=== PATIENT | male | born 1940 | race Caucasian/White ===

== ENCOUNTER 2016-05-20 10:56 | Inpatient (IN) | payer MEDICARE, OTHER ==
--- NOTE | ~2016-05-20 | CN ---
Consultation Report [address] [place]. [address] NAME: LILIYA MCMAHON : 40 STATUS : ADM IN PAT#: [id number] AGE: 75 ADM/REG DATE : 05/20/16 MR#: [id number] REPORT SERV DATE: 05/20/16 DICTATED BY: SUDARSHAN ONEIL DATE: 05/20/16 REPORT STATUS : Draft TRANSCRIBED BY: MODL DATE: 05/20/16 CONSULTATION DATE OF CONSULTATION: 05/20/2016 REASON FOR CONSULTATION: Ventilator management. HISTORY OF PRESENT ILLNESS: The patient is a 75-year-old white gentleman with a past medical history of CVA and hypertension, who initially presented to [facility] with complaints of shortness of breath and at that time, was found to have a large neck mass. He was intubated there for respiratory failure. The patient then underwent a head and neck dissection by Dr. Barnett, which has since come back positive for adenocarcinoma. Dr. Barnett was unable to get a complete resection and so the patient is transferred over here for further robotic surgery. We are consulted for assistance in ventilator management while the patient is here. PAST MEDICAL HISTORY: 1. Hypertension. 2. History of CVA. 3. History of undisclosed previous cancer. HOME MEDICATIONS: See medication reconciliation form. ALLERGIES: NO KNOWN DRUG ALLERGIES. SOCIAL HISTORY: Unable to obtain secondary to sedation and intubation. FAMILY HISTORY: Unable to obtain secondary to sedation and intubation. REVIEW OF SYSTEMS: Unable to obtain secondary to sedation and intubation. PHYSICAL EXAMINATION: VITAL SIGNS: Temperature 98.5, heart rate 61, respiratory rate 18, blood pressure 195/85. GENERAL: Sedated and intubated. HEENT: ET tube in place. NECK: Supple and nontender. No lymphadenopathy. No thyromegaly. No jugular venous distention. LUNGS: Coarse breath sounds bilaterally. CARDIOVASCULAR: Regular rate and rhythm. No murmurs, rubs, or gallops. ABDOMEN: Soft, nontender, nondistended. Positive bowel sounds. No hepatosplenomegaly. EXTREMITIES: No cyanosis, clubbing, or edema. NEURO: Sedated. PSYCH: Unable to assess. Consultation Report [address] [place]. [address] NAME: LILIYA MCMAHON : 40 STATUS : ADM IN PAT#: [id number] AGE: 75 ADM/REG DATE : 05/20/16 MR#: [id number] REPORT SERV DATE: 05/20/16 DICTATED BY: SUDARSHAN ONEIL DATE: 05/20/16 REPORT STATUS : Draft TRANSCRIBED BY: KALEN DATE: 05/20/16 LABORATORY DATA: Labs are pending at the time of dictation. IMAGING: A chest x-ray shows very tiny, small bilateral effusions and some scant right-sided infiltrates. ASSESSMENT AND PLAN: The patient is a 75-year-old gentleman with a past medical history of hypertension and cerebrovascular accident, who presents with a new diagnosis of head and neck adenocarcinoma, status post partial resection by Dr. Barnett, now planned for further robotic dissection on Sunday. We are consulted for assistance in ventilator management. Currently, the patient is hemodynamically stable on the ventilator. We will get a followup ABG and wean his ventilator as tolerated. We will provide daily awakening trials to assess his mental status while he is on the ventilator. We will also provide sedation with propofol and/or Precedex and fentanyl as needed. Currently, the patient is hypertensive, we will start him on a Cardene drip and wean for a systolic blood pressure less than 180, as well as restart his home antihypertensives once we find out what those are. We will continue to follow along the patient with you, please call with questions, appreciate the consult. REGAN/KALEN Sudarshan Oneil MD / [id number] CC: Tylor Barnett M.D.
--- NOTE | ~2016-05-20 | HP ---
History And Physical [facility] [address] [place]. 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 HISTORY OF PRESENT ILLNESS: The patient is a 75-year-old male who was transferred initially at [facility] for treatment of shortness of breath, who was noted to have a tumor of the pharynx. This was subsequently confirmed to be a squamous-cell carcinoma. Late last week, Dr. Tylor Barnett of Otolaryngology took the patient to the operating room at [place] for direct laryngoscopy to biopsy his primary tumor, as well as neck dissection. This was on 05/12/2016. During laryngoscopy, the patient was felt to best benefit from an attempted robotic supraglottic laryngectomy capabilities, which were not possible at [place] and the patient was subsequently transferred to [facility], where this history and physical is dictated. The patient presented on 05/08/2016 to [place] with shortness of breath, chest discomfort, and was emergently intubated at that time. PAST MEDICAL HISTORY: Does include history of stroke, hypertension, and atrial fibrillation. PAST SURGICAL HISTORY: Includes tumor removal, hernia repair, neck stents, as well as leg stents, for vascular disease. The patient does have a hil-[id number] day smoking history, quit approximately at the age of 74 years. He has no other history of alcohol or drug use. ALLERGIES: HE DOES HAVE SEVERAL ALLERGIES INCLUDING CODEINE, LATEX, SULFA, TOBRAMYCIN, AND AMOXICILLIN. THIS IS ALL PER THE MEDICAL RECORDS, NOT FROM THE PATIENT'S FAMILY. PHYSICAL EXAMINATION: GENERAL: He is awake, he is intubated and sedated orally. He is afebrile, but he is hypertensive currently. HEENT: On examining the ears, the pinna are normal with no gross lesions. Nares currently are patent. Oral cavity shows oral endotracheal tube at this time and the neck shows healing neck dissection incisions. There was no sign or symptom of gross hematoma. At this time, JPs have little in the way of output. 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 PLAN: The patient is in need of surgical repair. This was planned with Dr. Barnett on Sunday. Dr. Castorena [facility] business administration program chair is aware that he has actually already seen the patient before I did and has written orders for his further ICU care. The patient will continue on the ventilator at this point and we will await surgical intervention on Sunday. RAQUEL/KALEN Sudarshan Nieves History And Physical [address] [address] NAME: LILIYA MCMAHON : 40 STATUS : ADM IN [facility]#: [id number] AGE: 75 ADM/REG DATE : 05/20/16 MR#: [id number] REPORT SERV DATE: 05/20/16 DICTATED BY: SUDARSHAN DUTTA. DATE: 05/20/16 REPORT STATUS : Draft TRANSCRIBED BY: KALEN DATE: 05/20/16 Patricia Dutta / [id number] CC: Tylor Barnett M.D.
--- NOTE | ~2016-05-20 | IDS ---
Interim Discharge Summary [facility] [address] [place]. [address] NAME: LILIYA MCMAHON : 40 STATUS : ADM IN [facility]#: [id number] AGE: 75 ADM/REG DATE : 05/20/16 MR#: [id number] REPORT SERV DATE: 06/16/16 DICTATED BY: JULIETA LE DATE: 06/16/16 REPORT STATUS : Draft TRANSCRIBED BY: MODL DATE: 06/16/16 ADMISSION DATE: 05/20/2016 DISCHARGE DATE: Please see history and physical by Dr. Wilson on 05/20/2016 for full details. In brief, this is a T2 N0 squamous cell carcinoma of the supraglottic larynx. The patient underwent surgical repair and went through a transoral supraglottic laryngectomy with a da Kelsey robotic platform by Dr. Barnett on 05/22/2016. HOSPITAL COURSE: 1. Laryngeal cancer, status post surgical repair and operation on 05/22/2016. I believe he had previous surgery prior to that at the outside hospital. Please see final discharge summary by primary team for the ENT record regarding this laryngeal cancer. From our perspective, the patient is on tracheostomy, he is on continuous mechanical ventilation, tolerates pressure support ventilation for around two to three hours, his peak airway pressure is around 20, and the patient is in need of a long-term acute facility. 2. Anemia: Of note, the patient is currently anemic. Continue to watch in the outpatient setting. 3. Dysphagia: The patient is status post PEG tube, on 06/15/2016, we had some bleeding, GI is involved. Percutaneous gastrotomy tube was inserted on 05/30/2016. 4. Agitation: This has been an ongoing problem for the patient, we have him off Precedex, we have been using Seroquel to treat his agitation. The patient's QTc on 06/15/2016, was 468. 5. Peripheral vascular disease: The patient is currently on aspirin and Plavix. 6. Pseudomonas: The patient is on ciprofloxacin and shall continue ciprofloxacin until 06/18/2016. 7. Sepsis: On 06/15/2016, it was noted that the patient had a new fever, mild leukocytosis, unclear whether the patient had an aspiration. We conducted a bronchoscopy. Pathology shows gram-negative bacilli, 15,000 colony units. Many white blood cell counts. The patient's blood culture is also 1/2 positive for a Staph. Thought to be a egr-ussx-[id number] Staph. Antibiotic choice has been changed from Cipro alone to the addition of vancomycin and meropenem. The patient is transferred to an LTAC, has been put on hold due to this new infection. 8. Disposition: Once the patient's infection is treated and antibiotic coverage is further defined depending culture data, the patient will most likely be able to transferred to an LTAC facility. JAKE/KALEN Julieta Le MD / [id number] Interim Discharge Summary [address] [address] NAME: LILIYA MCMAHON : 40 STATUS : ADM IN [facility]#: [id number] AGE: 75 ADM/REG DATE : 05/20/16 MR#: [id number] REPORT SERV DATE: 06/16/16 DICTATED BY: JULIETA LE DATE: 06/16/16 REPORT STATUS : Draft TRANSCRIBED BY: KALEN DATE: 06/16/16 CC: Patricia Donovan
--- NOTE | ~2016-05-20 | OP ---
Record Of Operation [facility] [address] [place]. [address] NAME: LILIYA MCMAHON : 40 STATUS : ADM IN [facility]#: [id number] AGE: 75 ADM/REG DATE : 05/20/16 MR#: [id number] REPORT SERV DATE: 06/15/16 DICTATED BY: JULIETA SPENCER DATE: 06/15/16 REPORT STATUS : Draft TRANSCRIBED BY: MODL DATE: 06/15/16 DATE OF PROCEDURE: 06/15/2016 PROCEDURE: Bronchoscopy with bronchoalveolar lavage. PREOPERATIVE DIAGNOSIS: Right lower lobe pneumonia with respiratory failure. POSTOPERATIVE DIAGNOSIS: Right lower lobe pneumonia with respiratory failure. INDICATION FOR PROCEDURE: The patient has a new onset of fever, right lower lobe infiltrate, and white blood cell count, evaluated for bronchoscopy for culture data. PROCEDURE NOTE: The patient was on mechanical ventilation, we placed the bronchoscope through the tracheostomy. We instilled lidocaine down the trachea and the right lower lobe. We conducted a central airway examination, no significant mucous plugs were noted. We were able to conduct a bronchoalveolar lavage of the right lower lobe to send off for culture data. There was no hemoptysis or other abnormalities. Endobronchial mucosa was erythematous. OUTCOME: Successful bronchoscopy for bronchoalveolar lavage of the right lower lobe. HFQ/KALEN Julieta Spencer MD / [id number] CC: Patricia Donovan KENNETH
--- NOTE | ~2016-05-20 | CN ---
Consultation Report [facility] [address] [place]. [address] NAME: LILIYA MCMAHON : 40 STATUS : ADM IN [facility]#: [id number] AGE: 75 ADM/REG DATE : 05/20/16 MR#: [id number] REPORT SERV DATE: 05/29/16 DICTATED BY: RACHELLE FIGUEROA DATE: 05/29/16 REPORT STATUS : Draft TRANSCRIBED BY: MODL DATE: 05/29/16 GI CONSULTATION DATE OF CONSULTATION: REASON FOR CONSULTATION: Dysphagia and protein-calorie malnutrition. HISTORY OF PRESENT ILLNESS: Mr. Mcmahon is a 75-year-old, white male, with a history of T2 N0 squamous cell carcinoma of the supraglottic larynx, which he recently had a laryngectomy and tracheostomy placement for on 05/22/2016. GI is being consulted for percutaneous endoscopic gastrostomy tube placement for protein-calorie malnutrition and dysphagia. PAST MEDICAL HISTORY: Squamous cell carcinoma of the supraglottic larynx, past CVA, hypertension, atrial fibrillation, and peripheral vascular disease. PAST SURGICAL HISTORY: Hernia repair, tumor removal as above, neck and leg stents placed. SOCIAL HISTORY: Former smoker, quit tobacco one year ago at age 74. Previously smoked one pack per day. Denies any alcohol or drug use. Sol, telephone number is [phone]. MEDICATIONS: Reviewed. ALLERGIES: REVIEWED. FAMILY HISTORY: Noncontributory. PHYSICAL EXAMINATION: VITAL SIGNS: The patient is afebrile. His vital signs have been stable. GENERAL: The patient is awake and alert, unable to verbalize due to recent surgeries, but exhibits good understanding when being questioned. HEENT: Normocephalic. Has tracheostomy in place. NG tube is also in place. CARDIAC: S1, S2. CHEST: Clear. ABDOMEN: Soft. Nontender, nondistended. Bowel sounds normoactive. LABORATORY DATA: Show WBC 5.3, hemoglobin 8.4, hematocrit 25.2, platelets 329. INR 1.1. Sodium 136, potassium 3.7, chloride 99, bicarb 28, BUN 15, creatinine 0.45, glucose 142, albumin is 2. Liver enzymes normal. Prealbumin is 11.4. IMPRESSION AND PLAN: Protein-calorie malnutrition secondary to dysphagia as he is status post squamous cell carcinoma of supraglottic larynx with laryngectomy and tracheostomy. Would be okay to go ahead and schedule EGD with PEG tube placement with anesthesia, but would like to discuss with Dr. Barnett with regard to surgery and anatomy of his posterior oropharynx. I do not suspect that this would be a problem. However, would like to just Consultation Report [facility] [address] [place]. [address] NAME: LILIYA MCMAHON : 40 STATUS : ADM IN PAT#: [id number] AGE: 75 ADM/REG DATE : 05/20/16 MR#: [id number] REPORT SERV DATE: 05/29/16 DICTATED BY: RACHELLE FIGUEROA DATE: 05/29/16 REPORT STATUS : Draft TRANSCRIBED BY: MODLizbeth DATE: 05/29/16 discuss preemptively. I reviewed the indications, procedure, risks, benefits, and alternatives of EGD with PEG tube placement with the patient. I will also call his (telephone number above) and discuss the same with her and would answer any questions or concerns that either may have. We will continue to follow. NANCY/KALEN Rachelle Figueroa MD / [id number] CC: Tylor Barnett M.D. Herbert Alberto
--- NOTE | ~2016-05-20 | CN ---
Consultation Report [facility] [address] [place]. [address] NAME: LILIYA MCMAHON : 40 STATUS : ADM IN [facility]#: [id number] AGE: 75 ADM/REG DATE : 05/20/16 MR#: [id number] REPORT SERV DATE: 05/30/16 DICTATED BY: WHITLEY CARMICHAEL DATE: 05/30/16 REPORT STATUS : Draft TRANSCRIBED BY: MODL DATE: 05/30/16 DATE OF CONSULTATION: 05/30/2016 IDENTIFYING DATA: 1. PCP, Dr. Herbert Alberto in [place]. 2. Surgeon is Dr. Tylor Barnett. 3. GI is Dr. Yara Figueroa. 4. Cash Poster on admission was Dr. Raffaele Perkins. HISTORY OF PRESENT ILLNESS: This is a 75-year-old male, who [facility]ness of [facility], chest discomfort, and emergently intubated on 05/08/2016. He [facility] after noting to have a tumor of his pharynx for which he was evaluated by Dr. Tylor Barnett of Otolaryngology. He took the patient to the operating room. The tumor was noted to be a squamous cell carcinoma. During laryngoscopy, at that time, the patient was felt to best benefit from an attempted robotic supraglottic laryngectomy capabilities, which were not possible at [place], so the patient was subsequently transferred to [facility], where his H and P was dictated here. The patient has a history of laryngeal cancer, for which he had a squamous cell carcinoma of the supraglottic larynx, hypertension, CVA, atrial fib, and history of peripheral vascular disease. The hospitalist group are consulted for medical management. The patient is status post laryngectomy, had a tracheostomy placed on 05/22/2016 and presently had a PEG tube placement today on 05/30/2016. The patient's history was obtained through review of health management consultant notes and H and Ps on admit to [facility]. There is no previous history in [employer] of the patient. The patient is on the vent per tracheostomy tube with a Precedex drip in use and unable to discuss his history of present illness as well as his past history. PAST MEDICAL HISTORY: 1. Laryngeal cancer. 2. Hypertension. 3. CVA. 4. Atrial fibrillation. 5. Peripheral vascular disease. HOME MEDICATIONS: 1. Albuterol HFA puffer p.r.n. daily. 2. Norvasc 5 mg one tablet p.o. daily. 3. Aspirin 81 mg p.o. every morning. 4. Plavix 75 mg p.o. every morning. 5. Doxycycline 100 mg p.o. b.i.d. x10 days. 6. Hydrochlorothiazide 12.5 mg one capsule daily. 7. Xalatan 0.005% ophthalmic drops, dose unknown. 8. Remeron 30 mg tablets, dose unknown daily. 9. Potassium chloride 10 mEq tablet, unknown daily. 10.Pravachol 40 mg tablets daily. Consultation Report [address] [place]. [address] NAME: LILIYA MCMAHON : 40 STATUS : ADM IN [facility]#: [id number] AGE: 75 ADM/REG DATE : 05/20/16 MR#: [id number] REPORT SERV DATE: 05/30/16 DICTATED BY: WHITLEY CARMICHAEL DATE: 05/30/16 REPORT STATUS : Draft TRANSCRIBED BY: KALEN DATE: 05/30/16 11.Flomax 0.4 mg capsule p.o. daily. ALLERGIES: 1. CODEINE. 2. LATEX. 3. SULFA. 4. AMOXICILLIN. 5. TOBRAMYCIN. SOCIAL HISTORY: The patient is , previous smoker of one pack per day, quit approximately one year ago. No illicit drugs. No alcohol use. FAMILY HISTORY: Unable to obtain. The patient is sedated on the vent and has a trach, and no family is available. SURGICAL HISTORY: 1. Hernia repair. 2. Tumor removal, which was squamous cell carcinoma of the supraglottic larynx. 3. History of leg and neck stents. 4. PEG on 05/30/2016. 5. Tracheostomy placement, 05/22/2016. REVIEW OF SYSTEMS: Negative, other than what is included in HPI. The patient is unable to relate to nausea and vomiting. On vent, displays no shortness of breath. He is very calm on Precedex drip. Displays no agitation. No noted fever. PHYSICAL EXAMINATION: VITAL SIGNS: From today, blood pressure 123/70, respiratory rate 20, heart rate 87, temperature 98.9, and O2 saturation 96% on the vent at 40% FiO2. GENERAL: This is a 75-year-old male, resting in bed, in no acute distress. He is sleepy. He will be awaken without difficulty to speech and touch. He has a trach to the vent and is on a Precedex drip for sedation at present time. NEURO: His head is atraumatic, normocephalic. He is sleepy, sedation in use. NECK: Supple. Trachea is midline. No JVD noted. No obvious thyromegaly or lymphadenopathy. He does have a trach, midline to the vent. EENT: His sclerae are nonicteric. Pupils are equal and reactive to light. His nares are patent. Mucous membranes moist. Tongue is midline without deviation. He nods to yes when I asked to assess him. CHEST: No pain with palpation. LUNGS: He has coarse rhonchi bilaterally. Respiratory rate normal. No increased work of breathing at present time on the vent. CARDIOVASCULAR: S1 and S2 with no obvious murmurs, rubs, or gallops. He is on bedside telemetry monitoring with a sinus rhythm with a rate of 75 without ectopy. ABDOMEN: Soft, nontender. He has hypoactive bowel sounds. PEG tube is in place in the Consultation Report [address] [address] NAME: LILIYA MCMAHON : 40 STATUS : ADM IN [facility]#: [id number] AGE: 75 ADM/REG DATE : 05/20/16 MR#: [id number] REPORT SERV DATE: 05/30/16 DICTATED BY: WHITLEY CARMICHAEL DATE: 05/30/16 REPORT STATUS : Draft TRANSCRIBED BY: MODL DATE: 05/30/16 epigastrium with 4 x [address] EXTREMITIES: Normal distal pulses. No calf tenderness. No edema. He has SCDs in place for DVT prophylaxis. SKIN: Warm and dry. No unusual rashes or lesions. Poor turgor. Normal color. PSYCH: The patient is sedated when awakens. He is cooperative and attempts yes/no to questions I ask. LABORATORY DATA: Sodium 134, potassium 3.5, chloride 95, bicarbonate 24.3, BUN 15, creatinine 0.52, GFR 121, glucose 138, calcium 8.2, magnesium 2.1, phosphorus 3.2, white blood cell 5.4, hemoglobin 8.4, hematocrit 25.6, platelets 379. INR 1.1, CPK 76, CK-MB 1.7, troponin 0.03. On 05/30/2016, the patient had a portable chest x-ray that showed cardiac silhouette and pulmonary vasculature stable. On 05/29/2016, the patient had an EKG that noted a sinus rhythm with a rate at 75. ASSESSMENT AND PLAN: 1. The patient is status post laryngectomy for squamous cell cancer per ENT. He has respiratory failure. He is maintained on the vent with the settings of CMV, tidal volume 500, 40% FiO2, and 5 of PEEP. He is on a Precedex drip for sedation per left subclavian. We will continue his Proventil treatments q.4 hours as noted, maintained vent settings for tonight. Check ABG and a portable chest x-ray in the a.m. 2. Hypertension. Aware. At presently, the patient's blood pressure is controlled. We will continue his Norvasc and hydrochlorothiazide per tube. 3. Protein-calorie malnutrition. Aware. He has presently had a new PEG insertion today. 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 and he will be maintained on normal saline at 50 an hour tonight. 4. Anemia. Aware. He has had a stable H and H for the last two days of 8.4 and 25.6. We will check an a.m. CBC and continue to monitor. 5. The patient has a history of peripheral vascular disease and stents. Aware. We will need the a.m. team to re-evaluate when to restart. The patient has previously been on Plavix and aspirin. He has been status post tracheostomy on the 05/22/2016 and now PEG placement today on the 05/30/2016. A.m. labs, BMP, magnesium, CBC, phosphorus, pre- albumin, ABG, and a portable chest x-ray in the a.m. The hospitalist group would like to thank you for this consultation. Let us know if we can be of any further assistance. GEORGE Whitley Carmichael NP / [id number] Consultation Report [facility] [address] [facility] [place] [address] NAME: LILIYA MCMAHON : 40 STATUS : ADM IN PAT#: [id number] AGE: 75 ADM/REG DATE : 05/20/16 MR#: [id number] REPORT SERV DATE: 05/30/16 DICTATED BY: WHITLEY CARMICHAEL DATE: 05/30/16 REPORT STATUS : Draft TRANSCRIBED BY: MODL DATE: 05/30/16 CC: Tylor Barnett M.D.
--- NOTE | ~2016-05-20 | DS ---
Discharge Summary [facility] [id number] [place]. [address] NAME: LILIYA MCMAHON : 40 STATUS : DIS IN PAT#: [id number] AGE: 75 ADM/REG DATE : 05/20/16 MR#: [id number] REPORT SERV DATE: 08/15/16 DICTATED BY: GORDY GUADALUPE DATE: 08/02/16 REPORT STATUS : Draft TRANSCRIBED BY: MODL DATE: 08/02/16 Data Collection from hospitalization ADDENDUM: HOSPITAL COURSE: On 06/16/2016, vancomycin had been started for bacteremia. His blood cell count was 18.5. On the , the patient remained on the ventilator. There were crackles in both lungs. CPAP trials were going to be continued as tolerated. Antibiotics were continued. White count was 10.1. The following day, the patient was still not able to be weaned from the ventilator. The patient does have gram-negative pneumonia. Vancomycin was continued. Discharge planning was performed. On 06/19/2016, his trach was clear. He has moderate secretions. Pathology results were reviewed. He was responsive and was in no distress. Procalcitonin level had decreased to 0.22. He had E coli growing out of the bronchial specimens. Vancomycin was stopped. Merrem was continued. Discharge instructions were given. Due to his improved and stable condition, he was discharged to [facility] with the above-stated instructions. Information collected by: [employer] [place] I submit the above information as my discharge summary. ADDI/KALEN Gordy Guadalupe M.D. / [id number] CC: Patricia Donovan KENNETH Camille Sommer, MD [facility]
--- NOTE | ~2016-05-20 | OP ---
Record Of Operation [facility] [address] [place]. 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 PROCEDURES: 1. Transoral supraglottic laryngectomy with da Kelsey platform. 2. Tracheostomy. SURGEON: Gordy Guadalupe M.D. ANESTHESIA: General. COMPLICATIONS: None. COUNTS: All counts correct following the procedure. ESTIMATED BLOOD LOSS: 5 mL. PREOPERATIVE INFORMED CONSENT: We discussed the risks and benefits of the surgery with the patient's family including, but not limited to bleeding, infection, possible airway fire, possible recurrence of the tumor, possible need for total laryngectomy due to aspiration, possible longstanding issues with aspiration and dysphagia, possible long-term trach dependence. They understand the risk and benefits of the surgery and consent is on the chart. DESCRIPTION OF PROCEDURE: The patient was brought to the operating suite and placed on the operating table in supine position. The patient was given general anesthesia through previously existing endotracheal tube. The patient's head and neck were cleaned and prepped in the usual sterile fashion. Following this, the retaining stitch was placed in the midline tongue and used it for tongue retraction, using 2-0 silk and then an FK retractor was carefully inserted in the oral cavity and advanced into the vallecula. The patient was suspended from the bed using the suspension apparatus. The robotic platform was brought into the field. The arms were positioned by me. In the center, a camera arm, the right arm was a spatula cautery. The left arm was a Concetta retractor. Once in position, I went over to the rotary slicing machine operator console. Under direction of the rotary slicing machine operator console, the supraglottic laryngectomy was performed. The epiglottis was transected in the midline down to the apex of the thyroid ala dissecting in the left lingual and the left vallecula. The superior laryngeal vessels were dissected out and clamped using hemoclips and triple kit, and then the vessels were divided. Dissection was carried out down along the internal wall of the thyroid ala down to the false vocal cord, the posterior aryepiglottic fold was transected and then the dissection was carried down to the superior aspect of the false vocal cord on the left. This was carried forward to the petiole of the epiglottis. The specimen was removed en bloc. The bulk of the tumor was centered in the left side of the laryngeal Record Of Operation [facility] [address] [place]. [address] NAME: LILIYA MCMAHON : 40 STATUS : ADM IN PAT#: [id number] AGE: 75 ADM/REG DATE : 05/20/16 MR#: [id number] REPORT SERV DATE: 05/23/16 DICTATED BY: GORDY GUADALUPE DATE: 05/23/16 REPORT STATUS : Draft TRANSCRIBED BY: MODL DATE: 05/23/16 surface of the epiglottis. Specimen was oriented; and pathology, frozen section came back some questionable positive areas in the inferior border of the resection as well as the lateral or lingual surface of epiglottis. There was a second margin taken, the false vocal cord on the left was removed and oriented, given to pathology for frozen section. There was no evidence of any residual tumor, and also the second margin in the paraglottic space was taken down to the perichondrium of the thyroid cartilage and the true margin was inked and sent for permanent section. Attention was taken to the right side of the epiglottis where in a similar fashion as described on the left, the right side of the epiglottis was removed by making an incision in the vallecula. The superior laryngeal vessels were dissected out, triply clamped using hemoclips and divided using electrocautery. Dissection was carried out again down to the superior aspect of the thyroid ala, and dissection was carried out down to the false vocal cord. The incision was made in the posterior aryepiglottic fold and then dissecting forward along the superior aspect of the false vocal cord down to the apex of the epiglottis. Specimen was oriented and given to pathology for permanent section. The robot arms were then removed from the field. The FK retractor was removed. Attention was taken to the neck for tracheostomy. PROCEDURE #2: The patient was brought to the operating suite and placed on the operating table in the supine position. General endotracheal anesthesia was initiated through the previously existing endotracheal tube. The neck was cleaned, prepped and draped in the usual sterile fashion. A transverse incision was marked out and then using electrocautery, an incision was made with sharp dissection down through the subcutaneous tissues down to the strap muscles. The midline fascia was divided and the strap muscles were retracted laterally. The thyroid isthmus was dissected off the anterior tracheal wall and divided using electrocautery, taking care to cauterize all surrounding vessels. A peanut pusher was used to clean off the anterior tracheal wall and the space between the second and third tracheal ring was scored using electrocautery. A #15-blade scalpel was used to perform tracheostomy. An inferior flap was created using curved Otero scissors and a stay suture was placed on the lower tracheal flap. The endotracheal tube was moved above the tracheostomy site and a #6 cuffed Shiley trach tube was placed through the tracheostomy site without difficulty. The endotracheal tube was removed. The tracheostomy tube was then reconnected to the ventilator and the patient was noted to have good CO2 return and good breath sounds bilaterally. The tracheostomy tube was then sutured to the skin using 2-0 silk suture and a Velcro trach tie. The patient was taken to the Intensive Care Unit in stable condition. EDI/KALEN Gordy Guadalupe M.D. / [id number] Record Of Operation [address] [address] NAME: LILIYA MCMAHON : 40 STATUS : ADM IN [facility]#: [id number] AGE: 75 ADM/REG DATE : 05/20/16 MR#: [id number] REPORT SERV DATE: 05/23/16 DICTATED BY: GORDY GUADALUPE DATE: 05/23/16 REPORT STATUS : Draft TRANSCRIBED BY: MODL DATE: 05/23/16 CC: Gordy Guadalupe M.D.
[2016-05-20 12:06] LABS: ALLENS TEST Pos; BE (BASE EXCESS) 1.3 MEQ/L (0 +/- 2.5); CARBOXYHEMOGLOBIN 0.3 % (0-3); HCO3 (ACTUAL BICARBONATE) 24.2 MEQ/L (23-27); HEMOBLOGIN CONTENT 10.7 G/DL (14-18); INSTRUMENT SERIAL # 35151; METHEMOGLOBIN 0.7 % (0-3); MODE CMV; OPERATOR ID 32214; PCO2 (CO2 TENSION) 33 MMHG (35-45); PO2 (O2 TENSION) 145 MMHG (79-93); SAMPLE Arterial; TIDAL VOLUME 500 ML; pH 7.49 (7.37-7.43)
[2016-05-20] MEDS ORDERED: *UNABLE3 (15:42)
[2016-05-20] MEDS ORDERED: ASAB PO (15:52)
[2016-05-20] MEDS ORDERED: NORV5 PO (15:52)
[2016-05-20] MEDS ORDERED: PLAVIX PO (15:52)
[2016-05-20] MEDS ORDERED: MONODOX100 MG PO (15:53)
[2016-05-20] MEDS ORDERED: KLOR-CON 1010 MEQ PO (15:54)
[2016-05-20] MEDS ORDERED: REMERON30 MG PO (15:54)
[2016-05-20] MEDS ORDERED: HYDROCHLOROT12.5 MG PO (15:54)
[2016-05-20] MEDS ORDERED: FLOMAX4 PO (15:55)
[2016-05-20] MEDS ORDERED: XALAT OPH (15:55)
[2016-05-20] MEDS ORDERED: PRAVACHOL40 MG PO (15:55)
[2016-05-20] MEDS ORDERED: VENTOLIN HFA INH (15:56)
[2016-05-21 01:57] LABS: BASOPHILS 0.1 %; BASOPHILS ABSOLUTE 0.01 10/3/uL (0.0-0.16); EOSINOPHILS 1.1 %; HEMATOCRIT 33.6 % (40.0-51.0); IMMATURE GRANULOCYTES 0.3 %; IMMATURE GRANULOCYTES ABSOLUTE 0.03 10/3/uL (0.0-0.11); LYMPHOCYTES 16.7 %; LYMPHOCYTES ABSOLUTE 1.53 10/3/uL (0.67-4.30); MEAN CORPUS HGB CONC 32.7 g/dL (32.0-36.0); MEAN CORPUSCULAR VOLUME 82.6 fL (80-100); MEAN PLATELET VOLUME 10.6 fL (9.2-13.0); MONOCYTES 3.5 %; MONOCYTES ABSOLUTE 0.32 10/3/uL (0.21-1.20); NEUTROPHILS 78.3 %; NEUTROPHILS ABSOLUTE 7.15 10/3/uL (2.02-8.40); PLATELET COUNT 226 10/3/uL (150-400); RBC DISTRIBUTION WIDTH 16.7 % (12.0-16.0); RED CELL COUNT 4.07 10/6/uL (4.7-6.1); WHITE BLOOD CELLS 9.1 10/3/uL (4.5-10.5)
[2016-05-21 01:58] LABS: MANUAL DIFF NO %
[2016-05-21 03:16] LABS: BUN (BLOOD UREA NITROGEN) 17 MG/DL (6-23); CHLORIDE, SERUM 109 MMOL/L (96-112); CO2 (CARBON DIOXIDE) 29 MMOL/L (24-34); CPK 76 U/L (0-200); CREATININE 0.52 MG/DL (0.70-1.30); GFR AFRICAN AMERICAN 121 ML/MIN (>=60); GFR NON AFRICAN AMERICAN 104 ML/MIN (>=60); GLUCOSE, SERUM 84 MG/DL (60-99); PHOSPHORUS, SERUM 2.2 MG/DL (2.5-4.5); POTASSIUM, SERUM 3.7 MMOL/L (3.5-5.3); SODIUM, SERUM 146 MMOL/L (135-148); TROPONIN I 0.03 NG/ML (<0.05)
[2016-05-21 03:28] LABS: CK-MB 1.7 NG/ML
[2016-05-21 04:03] LABS: ALLENS TEST Pos; BE (BASE EXCESS) 3.4 MEQ/L (0 +/- 2.5); CARBOXYHEMOGLOBIN 0.3 % (0-3); HCO3 (ACTUAL BICARBONATE) 26.6 MEQ/L (23-27); HEMOBLOGIN CONTENT 10.6 G/DL (14-18); INSTRUMENT SERIAL # 35151; METHEMOGLOBIN 0.7 % (0-3); MODE CMV; O2 CONTENT 14.7 VOL% (18-24); OPERATOR ID 13415; PCO2 (CO2 TENSION) 35 MMHG (35-45); PO2 (O2 TENSION) 114 MMHG (79-93); SAMPLE Arterial; TIDAL VOLUME 500 ML
[2016-05-22 03:53] LABS: BASOPHILS 0.1 %; BASOPHILS ABSOLUTE 0.01 10/3/uL (0.0-0.16); HEMATOCRIT 31.9 % (40.0-51.0); HEMOGLOBIN 10.7 g/dL (13.6-17.8); IMMATURE GRANULOCYTES 0.2 %; IMMATURE GRANULOCYTES ABSOLUTE 0.02 10/3/uL (0.0-0.11); LYMPHOCYTES 9.3 %; LYMPHOCYTES ABSOLUTE 0.91 10/3/uL (0.67-4.30); MEAN CORPUS HGB CONC 33.5 g/dL (32.0-36.0); MEAN CORPUSCULAR HEMOGLOB 26.8 pg (26.0-34.0); MEAN PLATELET VOLUME 10.1 fL (9.2-13.0); MONOCYTES 9.6 %; MONOCYTES ABSOLUTE 0.94 10/3/uL (0.21-1.20); NEUTROPHILS 79.8 %; NEUTROPHILS ABSOLUTE 7.81 10/3/uL (2.02-8.40); PLATELET COUNT 261 10/3/uL (150-400); RED CELL COUNT 3.99 10/6/uL (4.7-6.1); WHITE BLOOD CELLS 9.8 10/3/uL (4.5-10.5)
[2016-05-22 03:54] LABS: MANUAL DIFF NO %; MEAN CORPUSCULAR VOLUME 79.9 fL (80-100)
[2016-05-22 03:59] LABS: BUN (BLOOD UREA NITROGEN) 15 MG/DL (6-23); CALCIUM, SERUM 8.1 MG/DL (8.5-10.4); CHLORIDE, SERUM 98 MMOL/L (96-112); CO2 (CARBON DIOXIDE) 25 MMOL/L (24-34); CREATININE 0.57 MG/DL (0.70-1.30); GFR AFRICAN AMERICAN 116 ML/MIN (>=60); GFR NON AFRICAN AMERICAN 100 ML/MIN (>=60); GLUCOSE, SERUM 86 MG/DL (60-99); POTASSIUM, SERUM 3.5 MMOL/L (3.5-5.3); SODIUM, SERUM 135 MMOL/L (135-148)
[2016-05-22 04:00] LABS: PHOSPHORUS, SERUM 2.9 MG/DL (2.5-4.5)
[2016-05-22 04:00] LABS: BE (BASE EXCESS) 2.2 MEQ/L (0 +/- 2.5); CARBOXYHEMOGLOBIN 0.3 % (0-3); HCO3 (ACTUAL BICARBONATE) 24.3 MEQ/L (23-27); INSTRUMENT SERIAL # 35151; PCO2 (CO2 TENSION) 30 MMHG (35-45); PO2 (O2 TENSION) 132 MMHG (79-93); pH 7.53 (7.37-7.43)
[2016-05-22 04:01] LABS: HEMOBLOGIN CONTENT 11.3 G/DL (14-18); METHEMOGLOBIN 0.7 % (0-3); MODE CMV; O2 CONTENT 15.7 VOL% (18-24); OPERATOR ID 23712; SAMPLE Arterial; TIDAL VOLUME 500 ML
[2016-05-22 04:25] LABS: BAND NEUTROPHILS 11 %; LYMPHOCYTES 8 %; LYMPHOCYTES ABSOLUTE (CALC) 0.78 10/3/uL (0.67-4.30); MONOCYTES 2 %; NEUTROPHILS ABSOLUTE (CALC) 8.82 10/3/uL (2.02-8.40); RBC MORPHOLOGY NORM (NORMAL); SEGMENTED NEUTROPHIL (0) 79 %; TOTAL NUCLEATED CELLS 100
[2016-05-23 05:02] LABS: BASOPHILS 0.2 %; BASOPHILS ABSOLUTE 0.01 10/3/uL (0.0-0.16); EOSINOPHILS 0.2 %; EOSINOPHILS ABSOLUTE 0.01 10/3/uL (0.0-0.53); HEMATOCRIT 29.5 % (40.0-51.0); HEMOGLOBIN 10.1 g/dL (13.6-17.8); IMMATURE GRANULOCYTES 0.2 %; IMMATURE GRANULOCYTES ABSOLUTE 0.01 10/3/uL (0.0-0.11); MANUAL DIFF NO %; MEAN CORPUS HGB CONC 34.2 g/dL (32.0-36.0); MEAN CORPUSCULAR HEMOGLOB 26.9 pg (26.0-34.0); MEAN CORPUSCULAR VOLUME 78.7 fL (80-100); MEAN PLATELET VOLUME 9.8 fL (9.2-13.0); MONOCYTES 11.6 %; MONOCYTES ABSOLUTE 0.58 10/3/uL (0.21-1.20); NEUTROPHILS 77.8 %; NEUTROPHILS ABSOLUTE 3.88 10/3/uL (2.02-8.40); PLATELET COUNT 242 10/3/uL (150-400); RBC DISTRIBUTION WIDTH 15.6 % (12.0-16.0); RED CELL COUNT 3.75 10/6/uL (4.7-6.1)
[2016-05-23 05:12] LABS: BUN (BLOOD UREA NITROGEN) 15 MG/DL (6-23); CALCIUM, SERUM 8.6 MG/DL (8.5-10.4); CHLORIDE, SERUM 99 MMOL/L (96-112); CO2 (CARBON DIOXIDE) 23 MMOL/L (24-34); CREATININE 0.46 MG/DL (0.70-1.30); GFR AFRICAN AMERICAN 127 ML/MIN (>=60); GFR NON AFRICAN AMERICAN 110 ML/MIN (>=60); GLUCOSE, SERUM 133 MG/DL (60-99); PHOSPHORUS, SERUM 2.2 MG/DL (2.5-4.5); POTASSIUM, SERUM 3.5 MMOL/L (3.5-5.3); SODIUM, SERUM 137 MMOL/L (135-148)
[2016-05-23 12:13] LABS: A/G RATIO 0.6 (0.7-1.9); ALBUMIN 2.3 G/DL (3.5-5.0); ALKALINE PHOSPHATASE 71 U/L (45-117); GLOBULIN 3.6 G/DL (2.5-4.1); SGOT(AST) 13 U/L (5-40); SGPT(ALT) 22 U/L (5-65); TOTAL BILIRUBIN 0.8 MG/DL (0-1.2); TOTAL PROTEIN 5.9 G/DL (6.0-8.5)
[2016-05-23 12:21] LABS: PREALBUMIN 11.4 MG/DL (17.0-43.0)
[2016-05-24 05:20] LABS: BASOPHILS 0.1 %; BASOPHILS ABSOLUTE 0.01 10/3/uL (0.0-0.16); EOSINOPHILS 1.4 %; HEMOGLOBIN 10.4 g/dL (13.6-17.8); IMMATURE GRANULOCYTES 0.4 %; IMMATURE GRANULOCYTES ABSOLUTE 0.03 10/3/uL (0.0-0.11); LYMPHOCYTES 12.2 %; LYMPHOCYTES ABSOLUTE 0.85 10/3/uL (0.67-4.30); MEAN CORPUS HGB CONC 33.5 g/dL (32.0-36.0); MEAN CORPUSCULAR HEMOGLOB 27.2 pg (26.0-34.0); MEAN PLATELET VOLUME 9.9 fL (9.2-13.0); NEUTROPHILS 75.9 %; NEUTROPHILS ABSOLUTE 5.28 10/3/uL (2.02-8.40); PLATELET COUNT 283 10/3/uL (150-400); RED CELL COUNT 3.82 10/6/uL (4.7-6.1)
[2016-05-24 05:21] LABS: MEAN CORPUSCULAR VOLUME 81.2 fL (80-100)
[2016-05-24 05:22] LABS: MANUAL DIFF NO %
[2016-05-24 05:30] LABS: BUN (BLOOD UREA NITROGEN) 13 MG/DL (6-23); CALCIUM, SERUM 8.2 MG/DL (8.5-10.4); CHLORIDE, SERUM 99 MMOL/L (96-112); CREATININE 0.65 MG/DL (0.70-1.30); GFR AFRICAN AMERICAN 110 ML/MIN (>=60); GFR NON AFRICAN AMERICAN 95 ML/MIN (>=60); GLUCOSE, SERUM 132 MG/DL (60-99); PHOSPHORUS, SERUM 2.2 MG/DL (2.5-4.5); POTASSIUM, SERUM 3.3 MMOL/L (3.5-5.3); SODIUM, SERUM 138 MMOL/L (135-148)
[2016-05-24 05:33] LABS: CO2 (CARBON DIOXIDE) 29 MMOL/L (24-34)
[2016-05-25 05:21] LABS: BASOPHILS 0.2 %; BASOPHILS ABSOLUTE 0.02 10/3/uL (0.0-0.16); EOSINOPHILS 1.6 %; EOSINOPHILS ABSOLUTE 0.15 10/3/uL (0.0-0.53); HEMATOCRIT 30.4 % (40.0-51.0); HEMOGLOBIN 9.7 g/dL (13.6-17.8); IMMATURE GRANULOCYTES 0.6 %; IMMATURE GRANULOCYTES ABSOLUTE 0.06 10/3/uL (0.0-0.11); LYMPHOCYTES 9.8 %; LYMPHOCYTES ABSOLUTE 0.92 10/3/uL (0.67-4.30); MEAN CORPUS HGB CONC 31.9 g/dL (32.0-36.0); MEAN CORPUSCULAR HEMOGLOB 26.4 pg (26.0-34.0); MEAN CORPUSCULAR VOLUME 82.8 fL (80-100); MEAN PLATELET VOLUME 9.5 fL (9.2-13.0); MONOCYTES 8.6 %; MONOCYTES ABSOLUTE 0.81 10/3/uL (0.21-1.20); NEUTROPHILS 79.2 %; NEUTROPHILS ABSOLUTE 7.43 10/3/uL (2.02-8.40); PLATELET COUNT 276 10/3/uL (150-400); RBC DISTRIBUTION WIDTH 16.3 % (12.0-16.0); RED CELL COUNT 3.67 10/6/uL (4.7-6.1); WHITE BLOOD CELLS 9.4 10/3/uL (4.5-10.5)
[2016-05-25 05:23] LABS: MANUAL DIFF NO %
[2016-05-25 05:28] LABS: BUN (BLOOD UREA NITROGEN) 12 MG/DL (6-23); CALCIUM, SERUM 8.4 MG/DL (8.5-10.4); CHLORIDE, SERUM 100 MMOL/L (96-112); CO2 (CARBON DIOXIDE) 29 MMOL/L (24-34); CREATININE 0.52 MG/DL (0.70-1.30); GFR AFRICAN AMERICAN 121 ML/MIN (>=60); GFR NON AFRICAN AMERICAN 104 ML/MIN (>=60); GLUCOSE, SERUM 120 MG/DL (60-99); PHOSPHORUS, SERUM 2.5 MG/DL (2.5-4.5); POTASSIUM, SERUM 3.8 MMOL/L (3.5-5.3); SODIUM, SERUM 138 MMOL/L (135-148)
[2016-05-25 14:37] LABS: HEMATOCRIT 30.5 % (40.0-51.0); HEMOGLOBIN 9.7 g/dL (13.6-17.8)
[2016-05-25 14:46] LABS: INTERNATIONAL NORMAL RATI 1.1 UNITS (-); PROTIME (NOT ORD) 13.8 SEC (12.0-14.5)
[2016-05-26 07:53] LABS: HEMOGLOBIN 8.9 g/dL (13.6-17.8); MEAN CORPUS HGB CONC 32.8 g/dL (32.0-36.0); MEAN CORPUSCULAR HEMOGLOB 27.6 pg (26.0-34.0); MEAN CORPUSCULAR VOLUME 83.9 fL (80-100); MEAN PLATELET VOLUME 9.9 fL (9.2-13.0); PLATELET COUNT 259 10/3/uL (150-400); RBC DISTRIBUTION WIDTH 16.4 % (12.0-16.0); RED CELL COUNT 3.23 10/6/uL (4.7-6.1); WHITE BLOOD CELLS 9.7 10/3/uL (4.5-10.5)
[2016-05-26 07:55] LABS: HEMATOCRIT 27.1 % (40.0-51.0); MANUAL DIFF YES %
[2016-05-26 08:01] LABS: BUN (BLOOD UREA NITROGEN) 13 MG/DL (6-23); CALCIUM, SERUM 8.3 MG/DL (8.5-10.4); CHLORIDE, SERUM 99 MMOL/L (96-112); CO2 (CARBON DIOXIDE) 30 MMOL/L (24-34); CREATININE 0.56 MG/DL (0.70-1.30); GFR AFRICAN AMERICAN 117 ML/MIN (>=60); GFR NON AFRICAN AMERICAN 101 ML/MIN (>=60); GLUCOSE, SERUM 184 MG/DL (60-99); PHOSPHORUS, SERUM 2.5 MG/DL (2.5-4.5); POTASSIUM, SERUM 3.5 MMOL/L (3.5-5.3); SODIUM, SERUM 139 MMOL/L (135-148)
[2016-05-26 08:28] LABS: BAND NEUTROPHILS 11 %; LYMPHOCYTES 7 %; LYMPHOCYTES ABSOLUTE (CALC) 0.68 10/3/uL (0.67-4.30); MONOCYTES 5 %; MONOCYTES ABSOLUTE (CALC) 0.49 10/3/uL (0.21-1.20); NEUTROPHILS ABSOLUTE (CALC) 8.54 10/3/uL (2.02-8.40); PLATELET ESTIMATE ADQ (ADEQUATE); RBC MORPHOLOGY NORM (NORMAL); SEGMENTED NEUTROPHIL (0) 77 %; TOTAL NUCLEATED CELLS 100
[2016-05-26 20:44] LABS: BUN (BLOOD UREA NITROGEN) 10 MG/DL (6-23); CALCIUM, SERUM 8.8 MG/DL (8.5-10.4); CHLORIDE, SERUM 100 MMOL/L (96-112); CO2 (CARBON DIOXIDE) 31 MMOL/L (24-34); CREATININE 0.47 MG/DL (0.70-1.30); GFR AFRICAN AMERICAN 126 ML/MIN (>=60); GFR NON AFRICAN AMERICAN 109 ML/MIN (>=60); GLUCOSE, SERUM 147 MG/DL (60-99); PHOSPHORUS, SERUM 2.4 MG/DL (2.5-4.5); POTASSIUM, SERUM 3.3 MMOL/L (3.5-5.3); SODIUM, SERUM 139 MMOL/L (135-148)
[2016-05-27 05:47] LABS: ALBUMIN 2.2 G/DL (3.5-5.0); BUN (BLOOD UREA NITROGEN) 12 MG/DL (6-23); CALCIUM, SERUM 8.5 MG/DL (8.5-10.4); CHLORIDE, SERUM 100 MMOL/L (96-112); CO2 (CARBON DIOXIDE) 30 MMOL/L (24-34); GFR AFRICAN AMERICAN 123 ML/MIN (>=60); GFR NON AFRICAN AMERICAN 106 ML/MIN (>=60); GLUCOSE, SERUM 118 MG/DL (60-99); POTASSIUM, SERUM 3.6 MMOL/L (3.5-5.3); SODIUM, SERUM 140 MMOL/L (135-148)
[2016-05-27 05:48] LABS: PHOSPHORUS, SERUM 3.6 MG/DL (2.5-4.5)
[2016-05-27 06:01] LABS: HEMATOCRIT 27.5 % (40.0-51.0); HEMOGLOBIN 8.9 g/dL (13.6-17.8); MEAN CORPUS HGB CONC 32.4 g/dL (32.0-36.0); MEAN CORPUSCULAR HEMOGLOB 27.1 pg (26.0-34.0); MEAN CORPUSCULAR VOLUME 83.8 fL (80-100); MEAN PLATELET VOLUME 10.6 fL (9.2-13.0); PLATELET COUNT 301 10/3/uL (150-400); RBC DISTRIBUTION WIDTH 16.7 % (12.0-16.0); RED CELL COUNT 3.28 10/6/uL (4.7-6.1); WHITE BLOOD CELLS 8.9 10/3/uL (4.5-10.5)
[2016-05-27 06:03] LABS: MANUAL DIFF YES %
[2016-05-27 06:28] LABS: BAND NEUTROPHILS 4 %; LYMPHOCYTES 7 %; LYMPHOCYTES ABSOLUTE (CALC) 0.62 10/3/uL (0.67-4.30); MONOCYTES 2 %; MONOCYTES ABSOLUTE (CALC) 0.18 10/3/uL (0.21-1.20); PLATELET ESTIMATE ADQ (ADEQUATE); RBC MORPHOLOGY NORM (NORMAL); SEGMENTED NEUTROPHIL (0) 87 %; TOTAL NUCLEATED CELLS 100
[2016-05-28 05:20] LABS: HEMATOCRIT 27.3 % (40.0-51.0); HEMOGLOBIN 8.8 g/dL (13.6-17.8); MEAN CORPUS HGB CONC 32.2 g/dL (32.0-36.0); MEAN CORPUSCULAR HEMOGLOB 27.1 pg (26.0-34.0); PLATELET COUNT 344 10/3/uL (150-400); RBC DISTRIBUTION WIDTH 16.6 % (12.0-16.0); RED CELL COUNT 3.25 10/6/uL (4.7-6.1); WHITE BLOOD CELLS 6.9 10/3/uL (4.5-10.5)
[2016-05-28 05:21] LABS: BUN (BLOOD UREA NITROGEN) 11 MG/DL (6-23); CALCIUM, SERUM 8.8 MG/DL (8.5-10.4); CHLORIDE, SERUM 100 MMOL/L (96-112); CO2 (CARBON DIOXIDE) 31 MMOL/L (24-34); CREATININE 0.43 MG/DL (0.70-1.30); GFR AFRICAN AMERICAN 131 ML/MIN (>=60); GFR NON AFRICAN AMERICAN 113 ML/MIN (>=60); GLUCOSE, SERUM 118 MG/DL (60-99); MANUAL DIFF YES %; PHOSPHORUS, SERUM 2.7 MG/DL (2.5-4.5); POTASSIUM, SERUM 3.5 MMOL/L (3.5-5.3); SODIUM, SERUM 140 MMOL/L (135-148)
[2016-05-28 06:15] LABS: BAND NEUTROPHILS 11 %; EOSINOPHILS 1 %; EOSINOPHILS ABSOLUTE (CALC) 0.07 10/3/uL (0.0-0.53); LYMPHOCYTES 4 %; LYMPHOCYTES ABSOLUTE (CALC) 0.28 10/3/uL (0.67-4.30); MONOCYTES 2 %; MONOCYTES ABSOLUTE (CALC) 0.14 10/3/uL (0.21-1.20); NEUTROPHILS ABSOLUTE (CALC) 6.42 10/3/uL (2.02-8.40); PLATELET ESTIMATE ADQ (ADEQUATE); RBC MORPHOLOGY NORM (NORMAL); SEGMENTED NEUTROPHIL (0) 82 %; TOTAL NUCLEATED CELLS 100
[2016-05-29 06:40] LABS: HEMATOCRIT 25.2 % (40.0-51.0); HEMOGLOBIN 8.4 g/dL (13.6-17.8); MEAN CORPUS HGB CONC 33.3 g/dL (32.0-36.0); MEAN CORPUSCULAR HEMOGLOB 27.7 pg (26.0-34.0); MEAN CORPUSCULAR VOLUME 83.2 fL (80-100); MEAN PLATELET VOLUME 9.9 fL (9.2-13.0); PLATELET COUNT 320 10/3/uL (150-400); RBC DISTRIBUTION WIDTH 16.5 % (12.0-16.0); RED CELL COUNT 3.03 10/6/uL (4.7-6.1); WHITE BLOOD CELLS 5.3 10/3/uL (4.5-10.5)
[2016-05-29 06:42] LABS: MANUAL DIFF YES %
[2016-05-29 06:56] LABS: BUN (BLOOD UREA NITROGEN) 15 MG/DL (6-23); CALCIUM, SERUM 8.5 MG/DL (8.5-10.4); CHLORIDE, SERUM 99 MMOL/L (96-112); CO2 (CARBON DIOXIDE) 28 MMOL/L (24-34); CREATININE 0.45 MG/DL (0.70-1.30); GFR AFRICAN AMERICAN 128 ML/MIN (>=60); GFR NON AFRICAN AMERICAN 111 ML/MIN (>=60); GLUCOSE, SERUM 142 MG/DL (60-99); PHOSPHORUS, SERUM 2.7 MG/DL (2.5-4.5); POTASSIUM, SERUM 3.7 MMOL/L (3.5-5.3); SODIUM, SERUM 136 MMOL/L (135-148)
[2016-05-29 07:09] LABS: ANISOCYTOSIS 1+ (5-10/OIF) (0-5/OIF); BAND NEUTROPHILS 7 %; EOSINOPHILS 3 %; EOSINOPHILS ABSOLUTE (CALC) 0.16 10/3/uL (0.0-0.53); HYPOCHROMIA 1+ (3-10/OIF) (0-2/OIF); LYMPHOCYTES 18 %; LYMPHOCYTES ABSOLUTE (CALC) 0.95 10/3/uL (0.67-4.30); MICROCYTES 1+ (5-10/OIF) (0-5/OIF); MONOCYTES 8 %; MONOCYTES ABSOLUTE (CALC) 0.42 10/3/uL (0.21-1.20); NEUTROPHILS ABSOLUTE (CALC) 3.76 10/3/uL (2.02-8.40); SEGMENTED NEUTROPHIL (0) 64 %; TOTAL NUCLEATED CELLS 100
[2016-05-30 05:21] LABS: BASOPHILS 0.4 %; BASOPHILS ABSOLUTE 0.02 10/3/uL (0.0-0.16); EOSINOPHILS ABSOLUTE 0.16 10/3/uL (0.0-0.53); HEMATOCRIT 25.6 % (40.0-51.0); HEMOGLOBIN 8.4 g/dL (13.6-17.8); IMMATURE GRANULOCYTES 0.7 %; IMMATURE GRANULOCYTES ABSOLUTE 0.04 10/3/uL (0.0-0.11); LYMPHOCYTES ABSOLUTE 0.97 10/3/uL (0.67-4.30); MEAN CORPUS HGB CONC 32.8 g/dL (32.0-36.0); MEAN CORPUSCULAR HEMOGLOB 26.8 pg (26.0-34.0); MEAN CORPUSCULAR VOLUME 81.8 fL (80-100); MEAN PLATELET VOLUME 10.4 fL (9.2-13.0); MONOCYTES ABSOLUTE 0.54 10/3/uL (0.21-1.20); NEUTROPHILS 67.9 %; NEUTROPHILS ABSOLUTE 3.65 10/3/uL (2.02-8.40); PLATELET COUNT 379 10/3/uL (150-400); RBC DISTRIBUTION WIDTH 16.4 % (12.0-16.0); RED CELL COUNT 3.13 10/6/uL (4.7-6.1); WHITE BLOOD CELLS 5.4 10/3/uL (4.5-10.5)
[2016-05-30 05:22] LABS: MANUAL DIFF NO %
[2016-05-30 05:28] LABS: PHOSPHORUS, SERUM 3.2 MG/DL (2.5-4.5)
[2016-05-30 06:32] LABS: BUN (BLOOD UREA NITROGEN) 15 MG/DL (6-23); CALCIUM, SERUM 8.2 MG/DL (8.5-10.4); CHLORIDE, SERUM 95 MMOL/L (96-112); CO2 (CARBON DIOXIDE) 29 MMOL/L (24-34); CREATININE 0.52 MG/DL (0.70-1.30); GFR AFRICAN AMERICAN 121 ML/MIN (>=60); GFR NON AFRICAN AMERICAN 104 ML/MIN (>=60); GLUCOSE, SERUM 138 MG/DL (60-99); POTASSIUM, SERUM 3.5 MMOL/L (3.5-5.3); SODIUM, SERUM 134 MMOL/L (135-148)
[2016-05-31 04:41] LABS: HEMATOCRIT 27.2 % (40.0-51.0); HEMOGLOBIN 9.1 g/dL (13.6-17.8); MEAN CORPUS HGB CONC 33.5 g/dL (32.0-36.0); MEAN CORPUSCULAR HEMOGLOB 27.3 pg (26.0-34.0); MEAN CORPUSCULAR VOLUME 81.7 fL (80-100); MEAN PLATELET VOLUME 9.7 fL (9.2-13.0); PLATELET COUNT 450 10/3/uL (150-400); RED CELL COUNT 3.33 10/6/uL (4.7-6.1); WHITE BLOOD CELLS 7.3 10/3/uL (4.5-10.5)
[2016-05-31 04:42] LABS: MANUAL DIFF YES %
[2016-05-31 05:09] LABS: BAND NEUTROPHILS 15 %; LYMPHOCYTES 10 %; LYMPHOCYTES ABSOLUTE (CALC) 0.73 10/3/uL (0.67-4.30); MONOCYTES 7 %; MONOCYTES ABSOLUTE (CALC) 0.51 10/3/uL (0.21-1.20); NEUTROPHILS ABSOLUTE (CALC) 6.06 10/3/uL (2.02-8.40); PLATELET ESTIMATE SLT INC (ADEQUATE); RBC MORPHOLOGY NORM (NORMAL); SEGMENTED NEUTROPHIL (0) 68 %; TOTAL NUCLEATED CELLS 100
[2016-05-31 05:16] LABS: ALLENS TEST Pos; BE (BASE EXCESS) 4.9 MEQ/L (0 +/- 2.5); HCO3 (ACTUAL BICARBONATE) 28.3 MEQ/L (23-27); HEMOBLOGIN CONTENT 8.2 G/DL (14-18); INSTRUMENT SERIAL # 8083; METHEMOGLOBIN 0.2 % (0-3); O2 CONTENT 11.6 VOL% (18-24); OPERATOR ID 19993; PCO2 (CO2 TENSION) 37 MMHG (35-45); PO2 (O2 TENSION) 130 MMHG (79-93); SAMPLE Arterial; pH 7.51 (7.37-7.43)
[2016-05-31 05:17] LABS: ALBUMIN 2.3 G/DL (3.5-5.0); CALCIUM, SERUM 8.6 MG/DL (8.5-10.4); CHLORIDE, SERUM 96 MMOL/L (96-112); CO2 (CARBON DIOXIDE) 27 MMOL/L (24-34); CREATININE 0.46 MG/DL (0.70-1.30); GFR AFRICAN AMERICAN 127 ML/MIN (>=60); GFR NON AFRICAN AMERICAN 110 ML/MIN (>=60); GLUCOSE, SERUM 117 MG/DL (60-99); PHOSPHORUS, SERUM 2.7 MG/DL (2.5-4.5); POTASSIUM, SERUM 3.3 MMOL/L (3.5-5.3); SODIUM, SERUM 135 MMOL/L (135-148)
[2016-05-31 05:22] LABS: BUN (BLOOD UREA NITROGEN) 10 MG/DL (6-23)
[2016-06-01 07:42] LABS: BUN (BLOOD UREA NITROGEN) 11 MG/DL (6-23); CALCIUM, SERUM 8.4 MG/DL (8.5-10.4); CHLORIDE, SERUM 95 MMOL/L (96-112); CO2 (CARBON DIOXIDE) 29 MMOL/L (24-34); CREATININE 0.48 MG/DL (0.70-1.30); GFR AFRICAN AMERICAN 125 ML/MIN (>=60); GFR NON AFRICAN AMERICAN 108 ML/MIN (>=60); GLUCOSE, SERUM 148 MG/DL (60-99); POTASSIUM, SERUM 3.1 MMOL/L (3.5-5.3); SODIUM, SERUM 134 MMOL/L (135-148)
[2016-06-02 05:23] LABS: BASOPHILS 0.3 %; BASOPHILS ABSOLUTE 0.02 10/3/uL (0.0-0.16); EOSINOPHILS 3.8 %; EOSINOPHILS ABSOLUTE 0.26 10/3/uL (0.0-0.53); HEMATOCRIT 26.8 % (40.0-51.0); HEMOGLOBIN 8.7 g/dL (13.6-17.8); IMMATURE GRANULOCYTES ABSOLUTE 0.07 10/3/uL (0.0-0.11); LYMPHOCYTES 13.6 %; LYMPHOCYTES ABSOLUTE 0.94 10/3/uL (0.67-4.30); MEAN CORPUS HGB CONC 32.5 g/dL (32.0-36.0); MEAN CORPUSCULAR HEMOGLOB 26.7 pg (26.0-34.0); MEAN CORPUSCULAR VOLUME 82.2 fL (80-100); MEAN PLATELET VOLUME 9.3 fL (9.2-13.0); MONOCYTES ABSOLUTE 0.69 10/3/uL (0.21-1.20); NEUTROPHILS 71.3 %; NEUTROPHILS ABSOLUTE 4.93 10/3/uL (2.02-8.40); PLATELET COUNT 456 10/3/uL (150-400); RED CELL COUNT 3.26 10/6/uL (4.7-6.1); WHITE BLOOD CELLS 6.9 10/3/uL (4.5-10.5)
[2016-06-02 05:25] LABS: MANUAL DIFF NO %
[2016-06-02 05:41] LABS: A/G RATIO 0.5 (0.7-1.9); ALBUMIN 2.1 G/DL (3.5-5.0); BUN (BLOOD UREA NITROGEN) 11 MG/DL (6-23); CALCIUM, SERUM 8.5 MG/DL (8.5-10.4); CHLORIDE, SERUM 96 MMOL/L (96-112); CO2 (CARBON DIOXIDE) 31 MMOL/L (24-34); CREATININE 0.57 MG/DL (0.70-1.30); GFR AFRICAN AMERICAN 116 ML/MIN (>=60); GFR NON AFRICAN AMERICAN 100 ML/MIN (>=60); GLOBULIN 4.1 G/DL (2.5-4.1); GLUCOSE, SERUM 148 MG/DL (60-99); PHOSPHORUS, SERUM 3.1 MG/DL (2.5-4.5); POTASSIUM, SERUM 3.7 MMOL/L (3.5-5.3); SGOT(AST) 7 U/L (5-40); SGPT(ALT) 28 U/L (5-65); SODIUM, SERUM 136 MMOL/L (135-148); TOTAL BILIRUBIN 0.4 MG/DL (0-1.2); TOTAL PROTEIN 6.2 G/DL (6.0-8.5)
[2016-06-02 05:42] LABS: ALKALINE PHOSPHATASE 96 U/L (45-117)
[2016-06-04 05:16] LABS: ALBUMIN 2.2 G/DL (3.5-5.0); BUN (BLOOD UREA NITROGEN) 9 MG/DL (6-23); CALCIUM, SERUM 8.6 MG/DL (8.5-10.4); CHLORIDE, SERUM 93 MMOL/L (96-112); CO2 (CARBON DIOXIDE) 32 MMOL/L (24-34); CREATININE 0.62 MG/DL (0.70-1.30); GFR AFRICAN AMERICAN 112 ML/MIN (>=60); GFR NON AFRICAN AMERICAN 97 ML/MIN (>=60); GLUCOSE, SERUM 146 MG/DL (60-99); POTASSIUM, SERUM 3.8 MMOL/L (3.5-5.3); SODIUM, SERUM 132 MMOL/L (135-148)
[2016-06-04 15:45] LABS: WBC (NOT ORDERED) (RFLEX) 0 (0-5)
[2016-06-04 16:10] LABS: ASCORBIC ACID (UR NOT ORDER) 40 (NEG); BILIRUBIN, URINE NEGATIVE (NEG); KETONE, URINE NEGATIVE (NEG); LEUKOCYTE ESTERASE(NOT OR NEG (NEG)
[2016-06-04 16:17] LABS: ALLENS TEST Pos; BE (BASE EXCESS) 5.8 MEQ/L (0 +/- 2.5); CARBOXYHEMOGLOBIN 0.8 % (0-3); DEVICE TM; HEMOBLOGIN CONTENT 10.5 G/DL (14-18); INSTRUMENT SERIAL # 8083; METHEMOGLOBIN 0.1 % (0-3); O2 CONTENT 14.1 VOL% (18-24); PCO2 (CO2 TENSION) 32 MMHG (35-45); PO2 (O2 TENSION) 74 MMHG (79-93); SAMPLE Arterial; pH 7.56 (7.37-7.43)
[2016-06-04 17:54] LABS: HEMOGLOBIN 9.9 g/dL (13.6-17.8); MEAN CORPUSCULAR HEMOGLOB 26.8 pg (26.0-34.0); MEAN CORPUSCULAR VOLUME 81.1 fL (80-100); MEAN PLATELET VOLUME 9.1 fL (9.2-13.0); PLATELET COUNT 548 10/3/uL (150-400); RBC DISTRIBUTION WIDTH 16.2 % (12.0-16.0)
[2016-06-04 17:57] LABS: MANUAL DIFF YES %; WHITE BLOOD CELLS 15.9 10/3/uL (4.5-10.5)
[2016-06-04 18:15] LABS: BAND NEUTROPHILS 27 %; IMMATURE GRANS ABSOLUTE (CALC) 0.16 10/3/uL (0.0-0.11); LYMPHOCYTES 1 %; LYMPHOCYTES ABSOLUTE (CALC) 0.16 10/3/uL (0.67-4.30); METAMYELOCYTES 1 %; MONOCYTES 6 %; MONOCYTES ABSOLUTE (CALC) 0.95 10/3/uL (0.21-1.20); NEUTROPHILS ABSOLUTE (CALC) 14.63 10/3/uL (2.02-8.40); PLATELET ESTIMATE SLT INC (ADEQUATE); SEGMENTED NEUTROPHIL (0) 65 %; TOTAL NUCLEATED CELLS 100; TOXIC GRANULATION 2+
[2016-06-04 18:16] LABS: A/G RATIO 0.5 (0.7-1.9); ALBUMIN 2.2 G/DL (3.5-5.0); ALKALINE PHOSPHATASE 110 U/L (45-117); ANISOCYTOSIS 1+ (5-10/OIF) (0-5/OIF); BUN (BLOOD UREA NITROGEN) 12 MG/DL (6-23); CALCIUM, SERUM 8.6 MG/DL (8.5-10.4); CHLORIDE, SERUM 92 MMOL/L (96-112); CK-MB 0.8 NG/ML; CO2 (CARBON DIOXIDE) 30 MMOL/L (24-34); CPK 285 U/L (0-200); CREATININE 0.75 MG/DL (0.70-1.30); GFR AFRICAN AMERICAN 104 ML/MIN (>=60); GFR NON AFRICAN AMERICAN 90 ML/MIN (>=60); GLOBULIN 4.8 G/DL (2.5-4.1); GLUCOSE, SERUM 191 MG/DL (60-99); PHOSPHORUS, SERUM 1.9 MG/DL (2.5-4.5); POIKILOCYTOSIS 1+ (5-10/OIF) (0-5/OIF); POTASSIUM, SERUM 3.8 MMOL/L (3.5-5.3); SGOT(AST) 16 U/L (5-40); SGPT(ALT) 23 U/L (5-65); SODIUM, SERUM 130 MMOL/L (135-148); TOTAL BILIRUBIN 0.5 MG/DL (0-1.2); TROPONIN I <0.02 NG/ML (<0.05)
[2016-06-04 18:56] LABS: PROCALCITONIN 0.22 ng/mL (<0.5)
[2016-06-04 19:38] LABS: ALLENS TEST Pos; BE (BASE EXCESS) 4.1 MEQ/L (0 +/- 2.5); HCO3 (ACTUAL BICARBONATE) 27.2 MEQ/L (23-27); HEMOBLOGIN CONTENT 11.2 G/DL (14-18); INSTRUMENT SERIAL # 8083; METHEMOGLOBIN 0.3 % (0-3); MODE CMV; O2 CONTENT 16.5 VOL% (18-24); OPERATOR ID 31061; PCO2 (CO2 TENSION) 35 MMHG (35-45); PO2 (O2 TENSION) 298 MMHG (79-93); SAMPLE Arterial; TIDAL VOLUME 400 ML
[2016-06-04 23:39] LABS: CPK 211 U/L (0-200); TROPONIN I 0.03 NG/ML (<0.05)
[2016-06-04 23:40] LABS: CK-MB 0.6 NG/ML
[2016-06-05 03:30] LABS: ALLENS TEST Pos; BE (BASE EXCESS) 1.2 MEQ/L (0 +/- 2.5); CARBOXYHEMOGLOBIN 0.1 % (0-3); HCO3 (ACTUAL BICARBONATE) 26.1 MEQ/L (23-27); HEMOBLOGIN CONTENT 9.3 G/DL (14-18); INSTRUMENT SERIAL # 8083; METHEMOGLOBIN 0.5 % (0-3); MODE CMV; O2 CONTENT 12.8 VOL% (18-24); OPERATOR ID 16503; PCO2 (CO2 TENSION) 43 MMHG (35-45); PO2 (O2 TENSION) 96 MMHG (79-93); SAMPLE Arterial; TIDAL VOLUME 400 ML; pH 7.41 (7.37-7.43)
[2016-06-05 04:25] LABS: HEMATOCRIT 27.9 % (40.0-51.0); MEAN CORPUS HGB CONC 32.3 g/dL (32.0-36.0); MEAN CORPUSCULAR HEMOGLOB 26.5 pg (26.0-34.0); MEAN CORPUSCULAR VOLUME 82.1 fL (80-100); MEAN PLATELET VOLUME 9.1 fL (9.2-13.0); PLATELET COUNT 532 10/3/uL (150-400)
[2016-06-05 04:26] LABS: MANUAL DIFF YES %; WHITE BLOOD CELLS 28.2 10/3/uL (4.5-10.5)
[2016-06-05 04:44] LABS: ALBUMIN 1.9 G/DL (3.5-5.0); BUN (BLOOD UREA NITROGEN) 11 MG/DL (6-23); CALCIUM, SERUM 8.1 MG/DL (8.5-10.4); CHLORIDE, SERUM 95 MMOL/L (96-112); CREATININE 0.79 MG/DL (0.70-1.30); GFR AFRICAN AMERICAN 102 ML/MIN (>=60); GFR NON AFRICAN AMERICAN 88 ML/MIN (>=60); POTASSIUM, SERUM 3.3 MMOL/L (3.5-5.3); SODIUM, SERUM 132 MMOL/L (135-148); TROPONIN I 0.03 NG/ML (<0.05)
[2016-06-05 04:47] LABS: CK-MB < 0.5 NG/ML; CO2 (CARBON DIOXIDE) 25 MMOL/L (24-34); CPK 140 U/L (0-200); GLUCOSE, SERUM 237 MG/DL (60-99); PHOSPHORUS, SERUM 3.2 MG/DL (2.5-4.5)
[2016-06-05 04:50] LABS: BAND NEUTROPHILS 35 %; IMMATURE GRANS ABSOLUTE (CALC) 0.85 10/3/uL (0.0-0.11); LYMPHOCYTES 5 %; LYMPHOCYTES ABSOLUTE (CALC) 1.41 10/3/uL (0.67-4.30); METAMYELOCYTES 3 %; MONOCYTES 4 %; MONOCYTES ABSOLUTE (CALC) 1.13 10/3/uL (0.21-1.20); NEUTROPHILS ABSOLUTE (CALC) 24.82 10/3/uL (2.02-8.40); PLATELET ESTIMATE SLT INC (ADEQUATE); SEGMENTED NEUTROPHIL (0) 53 %; TOTAL NUCLEATED CELLS 100; TOXIC GRANULATION SLT
[2016-06-05 04:53] LABS: POLYCHROMASIA 1+ (2-5/OIF) (0-1/OIF)
[2016-06-06 03:14] LABS: HEMOGLOBIN 8.1 g/dL (13.6-17.8); MEAN CORPUS HGB CONC 32.4 g/dL (32.0-36.0); MEAN CORPUSCULAR HEMOGLOB 26.6 pg (26.0-34.0); MEAN CORPUSCULAR VOLUME 82.2 fL (80-100); MEAN PLATELET VOLUME 8.4 fL (9.2-13.0); PLATELET COUNT 406 10/3/uL (150-400); RED CELL COUNT 3.04 10/6/uL (4.7-6.1); WHITE BLOOD CELLS 23.2 10/3/uL (4.5-10.5)
[2016-06-06 03:17] LABS: MANUAL DIFF YES %
[2016-06-06 03:27] LABS: BUN (BLOOD UREA NITROGEN) 12 MG/DL (6-23); CALCIUM, SERUM 8.3 MG/DL (8.5-10.4); CHLORIDE, SERUM 99 MMOL/L (96-112); CREATININE 0.61 MG/DL (0.70-1.30); GFR AFRICAN AMERICAN 113 ML/MIN (>=60); GFR NON AFRICAN AMERICAN 98 ML/MIN (>=60); POTASSIUM, SERUM 3.7 MMOL/L (3.5-5.3); SODIUM, SERUM 137 MMOL/L (135-148)
[2016-06-06 03:31] LABS: CO2 (CARBON DIOXIDE) 30 MMOL/L (24-34); GLUCOSE, SERUM 143 MG/DL (60-99)
[2016-06-06 03:56] LABS: BAND NEUTROPHILS 15 %; LYMPHOCYTES 6 %; LYMPHOCYTES ABSOLUTE (CALC) 1.39 10/3/uL (0.67-4.30); MONOCYTES 2 %; MONOCYTES ABSOLUTE (CALC) 0.46 10/3/uL (0.21-1.20); NEUTROPHILS ABSOLUTE (CALC) 21.34 10/3/uL (2.02-8.40); RBC MORPHOLOGY NORM (NORMAL); SEGMENTED NEUTROPHIL (0) 77 %; TOTAL NUCLEATED CELLS 100
[2016-06-06 05:37] LABS: PROCALCITONIN 3.06 ng/mL (<0.5)
[2016-06-08 04:36] LABS: BASOPHILS 0.5 %; BASOPHILS ABSOLUTE 0.03 10/3/uL (0.0-0.16); EOSINOPHILS 1.5 %; EOSINOPHILS ABSOLUTE 0.09 10/3/uL (0.0-0.53); HEMATOCRIT 24.4 % (40.0-51.0); HEMOGLOBIN 7.9 g/dL (13.6-17.8); IMMATURE GRANULOCYTES 1.5 %; IMMATURE GRANULOCYTES ABSOLUTE 0.09 10/3/uL (0.0-0.11); LYMPHOCYTES 19.6 %; LYMPHOCYTES ABSOLUTE 1.14 10/3/uL (0.67-4.30); MEAN CORPUS HGB CONC 32.4 g/dL (32.0-36.0); MEAN CORPUSCULAR HEMOGLOB 26.4 pg (26.0-34.0); MEAN CORPUSCULAR VOLUME 81.6 fL (80-100); MEAN PLATELET VOLUME 9.3 fL (9.2-13.0); MONOCYTES 11.9 %; MONOCYTES ABSOLUTE 0.69 10/3/uL (0.21-1.20); NEUTROPHILS ABSOLUTE 3.77 10/3/uL (2.02-8.40); PLATELET COUNT 429 10/3/uL (150-400); RBC DISTRIBUTION WIDTH 16.2 % (12.0-16.0); RED CELL COUNT 2.99 10/6/uL (4.7-6.1)
[2016-06-08 04:39] LABS: MANUAL DIFF NO %; WHITE BLOOD CELLS 5.8 10/3/uL (4.5-10.5)
[2016-06-08 04:56] LABS: A/G RATIO 0.4 (0.7-1.9); ALBUMIN 1.7 G/DL (3.5-5.0); CALCIUM, SERUM 8.5 MG/DL (8.5-10.4); CHLORIDE, SERUM 95 MMOL/L (96-112); CO2 (CARBON DIOXIDE) 33 MMOL/L (24-34); CREATININE 0.56 MG/DL (0.70-1.30); GFR AFRICAN AMERICAN 117 ML/MIN (>=60); GFR NON AFRICAN AMERICAN 101 ML/MIN (>=60); GLOBULIN 4.3 G/DL (2.5-4.1); SGOT(AST) 9 U/L (5-40); SGPT(ALT) 17 U/L (5-65); SODIUM, SERUM 134 MMOL/L (135-148); TOTAL BILIRUBIN 0.3 MG/DL (0-1.2)
[2016-06-08 05:12] LABS: ALKALINE PHOSPHATASE 93 U/L (45-117); BUN (BLOOD UREA NITROGEN) 8 MG/DL (6-23); GLUCOSE, SERUM 182 MG/DL (60-99); POTASSIUM, SERUM 2.9 MMOL/L (3.5-5.3)
[2016-06-08 06:47] LABS: PROCALCITONIN 0.87 ng/mL (<0.5)
[2016-06-08 09:09] LABS: POTASSIUM, SERUM 3.9 MMOL/L (3.5-5.3)
[2016-06-09 04:20] LABS: HEMATOCRIT 24.6 % (40.0-51.0); MEAN CORPUS HGB CONC 32.5 g/dL (32.0-36.0); MEAN CORPUSCULAR HEMOGLOB 26.6 pg (26.0-34.0); MEAN CORPUSCULAR VOLUME 81.7 fL (80-100); MEAN PLATELET VOLUME 8.9 fL (9.2-13.0); PLATELET COUNT 400 10/3/uL (150-400); RBC DISTRIBUTION WIDTH 16.5 % (12.0-16.0); RED CELL COUNT 3.01 10/6/uL (4.7-6.1)
[2016-06-09 04:21] LABS: MANUAL DIFF YES %; WHITE BLOOD CELLS 9.5 10/3/uL (4.5-10.5)
[2016-06-09 04:43] LABS: BUN (BLOOD UREA NITROGEN) 10 MG/DL (6-23); CALCIUM, SERUM 8.5 MG/DL (8.5-10.4); CHLORIDE, SERUM 95 MMOL/L (96-112); CO2 (CARBON DIOXIDE) 33 MMOL/L (24-34); CREATININE 0.63 MG/DL (0.70-1.30); GFR AFRICAN AMERICAN 112 ML/MIN (>=60); GFR NON AFRICAN AMERICAN 96 ML/MIN (>=60); GLUCOSE, SERUM 146 MG/DL (60-99); PHOSPHORUS, SERUM 2.7 MG/DL (2.5-4.5); POTASSIUM, SERUM 3.4 MMOL/L (3.5-5.3); SODIUM, SERUM 134 MMOL/L (135-148)
[2016-06-09 04:44] LABS: BAND NEUTROPHILS 3 %; LYMPHOCYTES 13 %; LYMPHOCYTES ABSOLUTE (CALC) 1.24 10/3/uL (0.67-4.30); METAMYELOCYTES 1 %; MONOCYTES 2 %; MONOCYTES ABSOLUTE (CALC) 0.19 10/3/uL (0.21-1.20); NEUTROPHILS ABSOLUTE (CALC) 7.98 10/3/uL (2.02-8.40); PLATELET ESTIMATE ADQ (ADEQUATE); RBC MORPHOLOGY NORM (NORMAL); SEGMENTED NEUTROPHIL (0) 81 %; TOTAL NUCLEATED CELLS 100
[2016-06-09 22:31] LABS: HEMOGLOBIN 6.8 g/dL (13.6-17.8)
[2016-06-09 22:33] LABS: INTERNATIONAL NORMAL RATI 1.1 UNITS (-); PROTIME (NOT ORD) 14.5 SEC (12.0-14.5)
[2016-06-09 22:34] LABS: PARTIAL THROMBO TIME 30.1 SEC (22.5-37.2)
[2016-06-09 23:25] LABS: PFA (COL/EPI) 201 SEC (72-180)
[2016-06-10 00:03] LABS: PFA (COL/ADP) 98 SEC (51-105)
[2016-06-10 00:19] LABS: POTASSIUM, SERUM 3.7 MMOL/L (3.5-5.3)
[2016-06-10 07:14] LABS: MEAN CORPUS HGB CONC 31.5 g/dL (32.0-36.0); MEAN CORPUSCULAR HEMOGLOB 26.2 pg (26.0-34.0); MEAN CORPUSCULAR VOLUME 83.1 fL (80-100); MEAN PLATELET VOLUME 9.1 fL (9.2-13.0); PLATELET COUNT 325 10/3/uL (150-400); RBC DISTRIBUTION WIDTH 16.6 % (12.0-16.0); RED CELL COUNT 3.32 10/6/uL (4.7-6.1); WHITE BLOOD CELLS 10.2 10/3/uL (4.5-10.5)
[2016-06-10 07:15] LABS: HEMATOCRIT 27.6 % (40.0-51.0); HEMOGLOBIN 8.7 g/dL (13.6-17.8); MANUAL DIFF YES %
[2016-06-10 07:34] LABS: A/G RATIO 0.5 (0.7-1.9); ALBUMIN 1.9 G/DL (3.5-5.0); CALCIUM, SERUM 8.2 MG/DL (8.5-10.4); CHLORIDE, SERUM 101 MMOL/L (96-112); CO2 (CARBON DIOXIDE) 32 MMOL/L (24-34); CREATININE 0.52 MG/DL (0.70-1.30); GFR AFRICAN AMERICAN 121 ML/MIN (>=60); GFR NON AFRICAN AMERICAN 104 ML/MIN (>=60); GLOBULIN 4.2 G/DL (2.5-4.1); GLUCOSE, SERUM 117 MG/DL (60-99); POTASSIUM, SERUM 3.5 MMOL/L (3.5-5.3); SGOT(AST) 9 U/L (5-40); SGPT(ALT) 15 U/L (5-65); TOTAL BILIRUBIN 0.5 MG/DL (0-1.2); TOTAL PROTEIN 6.1 G/DL (6.0-8.5)
[2016-06-10 07:35] LABS: ALKALINE PHOSPHATASE 81 U/L (45-117); BUN (BLOOD UREA NITROGEN) 14 MG/DL (6-23); SODIUM, SERUM 141 MMOL/L (135-148)
[2016-06-10 07:58] LABS: BAND NEUTROPHILS 8 %; EOSINOPHILS 3 %; EOSINOPHILS ABSOLUTE (CALC) 0.31 10/3/uL (0.0-0.53); IMMATURE GRANS ABSOLUTE (CALC) 0.71 10/3/uL (0.0-0.11); LYMPHOCYTES 27 %; LYMPHOCYTES ABSOLUTE (CALC) 2.75 10/3/uL (0.67-4.30); METAMYELOCYTES 6 %; MONOCYTES 11 %; MONOCYTES ABSOLUTE (CALC) 1.12 10/3/uL (0.21-1.20); MYELOCYTES 1 %; SEGMENTED NEUTROPHIL (0) 44 %; TOTAL NUCLEATED CELLS 100
[2016-06-10 07:59] LABS: HELMET CELLS OCC (0-2/OIF); PLATELET ESTIMATE ADQ (ADEQUATE); POLYCHROMASIA 1+ (2-5/OIF) (0-1/OIF); TOXIC GRANULATION 1+; VACUOLATED NEUTROPHILES OCC
[2016-06-10 08:00] LABS: MACROCYTES 1+ (5-10/OIF) (0-5/OIF); TEARDROP SHAPED RBCS OCC (0-2/OIF)
[2016-06-10 09:04] LABS: PROCALCITONIN 0.45 ng/mL (<0.5)
[2016-06-10 13:11] LABS: HEMATOCRIT 23.7 % (40.0-51.0)
[2016-06-10 17:32] LABS: HEMATOCRIT 23.4 % (40.0-51.0); HEMOGLOBIN 7.8 g/dL (13.6-17.8)
[2016-06-11 01:03] LABS: HEMATOCRIT 28.7 % (40.0-51.0); HEMOGLOBIN 9.5 g/dL (13.6-17.8)
[2016-06-11 01:13] LABS: BUN (BLOOD UREA NITROGEN) 11 MG/DL (6-23); CALCIUM, SERUM 8.1 MG/DL (8.5-10.4); CHLORIDE, SERUM 103 MMOL/L (96-112); CO2 (CARBON DIOXIDE) 30 MMOL/L (24-34); GFR AFRICAN AMERICAN 123 ML/MIN (>=60); GFR NON AFRICAN AMERICAN 106 ML/MIN (>=60); GLUCOSE, SERUM 111 MG/DL (60-99); POTASSIUM, SERUM 3.5 MMOL/L (3.5-5.3); SODIUM, SERUM 142 MMOL/L (135-148)
[2016-06-11 07:19] LABS: HEMATOCRIT 26.9 % (40.0-51.0)
[2016-06-11 13:03] LABS: HEMATOCRIT 26.4 % (40.0-51.0); HEMOGLOBIN 8.8 g/dL (13.6-17.8)
[2016-06-12 04:43] LABS: BASOPHILS 0.4 %; BASOPHILS ABSOLUTE 0.03 10/3/uL (0.0-0.16); EOSINOPHILS 1.3 %; EOSINOPHILS ABSOLUTE 0.09 10/3/uL (0.0-0.53); HEMATOCRIT 27.3 % (40.0-51.0); HEMOGLOBIN 8.8 g/dL (13.6-17.8); IMMATURE GRANULOCYTES 2.5 %; IMMATURE GRANULOCYTES ABSOLUTE 0.17 10/3/uL (0.0-0.11); LYMPHOCYTES ABSOLUTE 1.94 10/3/uL (0.67-4.30); MEAN CORPUS HGB CONC 32.2 g/dL (32.0-36.0); MEAN CORPUSCULAR HEMOGLOB 26.9 pg (26.0-34.0); MEAN CORPUSCULAR VOLUME 83.5 fL (80-100); MEAN PLATELET VOLUME 9.4 fL (9.2-13.0); MONOCYTES 10.8 %; MONOCYTES ABSOLUTE 0.75 10/3/uL (0.21-1.20); NEUTROPHILS ABSOLUTE 3.95 10/3/uL (2.02-8.40); PLATELET COUNT 305 10/3/uL (150-400); RBC DISTRIBUTION WIDTH 17.5 % (12.0-16.0); RED CELL COUNT 3.27 10/6/uL (4.7-6.1); WHITE BLOOD CELLS 6.9 10/3/uL (4.5-10.5)
[2016-06-12 04:47] LABS: MANUAL DIFF NO %
[2016-06-12 04:48] LABS: BUN (BLOOD UREA NITROGEN) 8 MG/DL (6-23); CALCIUM, SERUM 8.4 MG/DL (8.5-10.4); CHLORIDE, SERUM 102 MMOL/L (96-112); CO2 (CARBON DIOXIDE) 30 MMOL/L (24-34); CREATININE 0.51 MG/DL (0.70-1.30); GFR AFRICAN AMERICAN 122 ML/MIN (>=60); GFR NON AFRICAN AMERICAN 105 ML/MIN (>=60); GLUCOSE, SERUM 130 MG/DL (60-99); PHOSPHORUS, SERUM 3.3 MG/DL (2.5-4.5); POTASSIUM, SERUM 3.6 MMOL/L (3.5-5.3); SODIUM, SERUM 140 MMOL/L (135-148)
[2016-06-13 04:42] LABS: HEMATOCRIT 26.2 % (40.0-51.0); HEMOGLOBIN 8.4 g/dL (13.6-17.8); MANUAL DIFF YES %; MEAN CORPUS HGB CONC 32.1 g/dL (32.0-36.0); MEAN CORPUSCULAR VOLUME 84.2 fL (80-100); MEAN PLATELET VOLUME 8.9 fL (9.2-13.0); PLATELET COUNT 308 10/3/uL (150-400); RBC DISTRIBUTION WIDTH 17.8 % (12.0-16.0); RED CELL COUNT 3.11 10/6/uL (4.7-6.1); WHITE BLOOD CELLS 4.7 10/3/uL (4.5-10.5)
[2016-06-13 04:55] LABS: A/G RATIO 0.5 (0.7-1.9); ALBUMIN 1.8 G/DL (3.5-5.0); BUN (BLOOD UREA NITROGEN) 8 MG/DL (6-23); CALCIUM, SERUM 8.1 MG/DL (8.5-10.4); CHLORIDE, SERUM 103 MMOL/L (96-112); CO2 (CARBON DIOXIDE) 29 MMOL/L (24-34); CREATININE 0.54 MG/DL (0.70-1.30); GFR AFRICAN AMERICAN 119 ML/MIN (>=60); GFR NON AFRICAN AMERICAN 103 ML/MIN (>=60); GLOBULIN 3.6 G/DL (2.5-4.1); POTASSIUM, SERUM 3.3 MMOL/L (3.5-5.3); SGOT(AST) 7 U/L (5-40); SGPT(ALT) 10 U/L (5-65); SODIUM, SERUM 141 MMOL/L (135-148); TOTAL BILIRUBIN 0.9 MG/DL (0-1.2); TOTAL PROTEIN 5.4 G/DL (6.0-8.5)
[2016-06-13 04:57] LABS: ALKALINE PHOSPHATASE 68 U/L (45-117); GLUCOSE, SERUM 95 MG/DL (60-99)
[2016-06-13 05:14] LABS: BAND NEUTROPHILS 4 %; LYMPHOCYTES 26 %; LYMPHOCYTES ABSOLUTE (CALC) 1.22 10/3/uL (0.67-4.30); MONOCYTES 10 %; MONOCYTES ABSOLUTE (CALC) 0.47 10/3/uL (0.21-1.20); NEUTROPHILS ABSOLUTE (CALC) 3.01 10/3/uL (2.02-8.40); PLATELET ESTIMATE ADQ (ADEQUATE); SEGMENTED NEUTROPHIL (0) 60 %; TOTAL NUCLEATED CELLS 100
[2016-06-13 05:15] LABS: ANISOCYTOSIS 1+ (5-10/OIF) (0-5/OIF); MACROCYTES 1+ (5-10/OIF) (0-5/OIF)
[2016-06-14 04:26] LABS: BASOPHILS 0.6 %; BASOPHILS ABSOLUTE 0.03 10/3/uL (0.0-0.16); EOSINOPHILS 0.8 %; EOSINOPHILS ABSOLUTE 0.04 10/3/uL (0.0-0.53); HEMOGLOBIN 8.7 g/dL (13.6-17.8); IMMATURE GRANULOCYTES 0.8 %; IMMATURE GRANULOCYTES ABSOLUTE 0.04 10/3/uL (0.0-0.11); LYMPHOCYTES 25.7 %; LYMPHOCYTES ABSOLUTE 1.32 10/3/uL (0.67-4.30); MEAN CORPUS HGB CONC 32.2 g/dL (32.0-36.0); MEAN CORPUSCULAR HEMOGLOB 27.3 pg (26.0-34.0); MEAN CORPUSCULAR VOLUME 84.6 fL (80-100); MEAN PLATELET VOLUME 8.6 fL (9.2-13.0); MONOCYTES 10.3 %; MONOCYTES ABSOLUTE 0.53 10/3/uL (0.21-1.20); NEUTROPHILS 61.8 %; NEUTROPHILS ABSOLUTE 3.17 10/3/uL (2.02-8.40); PLATELET COUNT 297 10/3/uL (150-400); RBC DISTRIBUTION WIDTH 17.7 % (12.0-16.0); RED CELL COUNT 3.19 10/6/uL (4.7-6.1); WHITE BLOOD CELLS 5.1 10/3/uL (4.5-10.5)
[2016-06-14 04:38] LABS: BUN (BLOOD UREA NITROGEN) 11 MG/DL (6-23); CHLORIDE, SERUM 105 MMOL/L (96-112); CO2 (CARBON DIOXIDE) 28 MMOL/L (24-34); GFR AFRICAN AMERICAN 123 ML/MIN (>=60); GFR NON AFRICAN AMERICAN 106 ML/MIN (>=60); GLUCOSE, SERUM 104 MG/DL (60-99); POTASSIUM, SERUM 3.3 MMOL/L (3.5-5.3); SODIUM, SERUM 141 MMOL/L (135-148)
[2016-06-14 04:39] LABS: MANUAL DIFF NO %
[2016-06-15 04:52] LABS: HEMATOCRIT 30.3 % (40.0-51.0); HEMOGLOBIN 9.8 g/dL (13.6-17.8); MEAN CORPUS HGB CONC 32.3 g/dL (32.0-36.0); MEAN CORPUSCULAR HEMOGLOB 27.5 pg (26.0-34.0); MEAN CORPUSCULAR VOLUME 84.9 fL (80-100); MEAN PLATELET VOLUME 9.1 fL (9.2-13.0); PLATELET COUNT 410 10/3/uL (150-400); RBC DISTRIBUTION WIDTH 18.2 % (12.0-16.0); RED CELL COUNT 3.57 10/6/uL (4.7-6.1); WHITE BLOOD CELLS 12.3 10/3/uL (4.5-10.5)
[2016-06-15 04:52] LABS: BUN (BLOOD UREA NITROGEN) 8 MG/DL (6-23); CALCIUM, SERUM 8.4 MG/DL (8.5-10.4); CHLORIDE, SERUM 103 MMOL/L (96-112); CO2 (CARBON DIOXIDE) 25 MMOL/L (24-34); CREATININE 0.59 MG/DL (0.70-1.30); GFR AFRICAN AMERICAN 115 ML/MIN (>=60); GFR NON AFRICAN AMERICAN 99 ML/MIN (>=60); GLUCOSE, SERUM 93 MG/DL (60-99); POTASSIUM, SERUM 3.6 MMOL/L (3.5-5.3); SODIUM, SERUM 140 MMOL/L (135-148)
[2016-06-15 04:54] LABS: MANUAL DIFF YES %
[2016-06-15 06:30] LABS: ANISOCYTOSIS 1+ (5-10/OIF) (0-5/OIF); BAND NEUTROPHILS 6 %; LYMPHOCYTES 2 %; LYMPHOCYTES ABSOLUTE (CALC) 0.25 10/3/uL (0.67-4.30); MONOCYTES 4 %; MONOCYTES ABSOLUTE (CALC) 0.49 10/3/uL (0.21-1.20); NEUTROPHILS ABSOLUTE (CALC) 11.56 10/3/uL (2.02-8.40); PLATELET ESTIMATE SLT INC (ADEQUATE); POLYCHROMASIA 1+ (2-5/OIF) (0-1/OIF); SEGMENTED NEUTROPHIL (0) 88 %; TOTAL NUCLEATED CELLS 100; TOXIC GRANULATION 1+
[2016-06-16 05:58] LABS: HEMATOCRIT 27.1 % (40.0-51.0); HEMOGLOBIN 8.8 g/dL (13.6-17.8); MANUAL DIFF YES %; MEAN CORPUS HGB CONC 32.5 g/dL (32.0-36.0); MEAN CORPUSCULAR HEMOGLOB 27.8 pg (26.0-34.0); MEAN CORPUSCULAR VOLUME 85.8 fL (80-100); MEAN PLATELET VOLUME 8.9 fL (9.2-13.0); PLATELET COUNT 338 10/3/uL (150-400); RBC DISTRIBUTION WIDTH 17.9 % (12.0-16.0); RED CELL COUNT 3.16 10/6/uL (4.7-6.1); WHITE BLOOD CELLS 18.5 10/3/uL (4.5-10.5)
[2016-06-16 06:14] LABS: BUN (BLOOD UREA NITROGEN) 6 MG/DL (6-23); CALCIUM, SERUM 7.9 MG/DL (8.5-10.4); CHLORIDE, SERUM 102 MMOL/L (96-112); CO2 (CARBON DIOXIDE) 27 MMOL/L (24-34); CREATININE 0.46 MG/DL (0.70-1.30); GFR AFRICAN AMERICAN 127 ML/MIN (>=60); GFR NON AFRICAN AMERICAN 110 ML/MIN (>=60); GLUCOSE, SERUM 97 MG/DL (60-99); POTASSIUM, SERUM 3.2 MMOL/L (3.5-5.3); SODIUM, SERUM 139 MMOL/L (135-148)
[2016-06-16 07:21] LABS: ANISOCYTOSIS 1+ (5-10/OIF) (0-5/OIF); BAND NEUTROPHILS 8 %; LYMPHOCYTES 5 %; LYMPHOCYTES ABSOLUTE (CALC) 0.93 10/3/uL (0.67-4.30); MONOCYTES 3 %; MONOCYTES ABSOLUTE (CALC) 0.56 10/3/uL (0.21-1.20); NEUTROPHILS ABSOLUTE (CALC) 17.02 10/3/uL (2.02-8.40); PLATELET ESTIMATE ADQ (ADEQUATE); SEGMENTED NEUTROPHIL (0) 84 %; TOTAL NUCLEATED CELLS 100
[2016-06-17 04:58] LABS: BASOPHILS 0.1 %; BASOPHILS ABSOLUTE 0.01 10/3/uL (0.0-0.16); EOSINOPHILS 0.4 %; EOSINOPHILS ABSOLUTE 0.04 10/3/uL (0.0-0.53); HEMATOCRIT 25.3 % (40.0-51.0); HEMOGLOBIN 8.1 g/dL (13.6-17.8); IMMATURE GRANULOCYTES 0.1 %; IMMATURE GRANULOCYTES ABSOLUTE 0.01 10/3/uL (0.0-0.11); LYMPHOCYTES 12.2 %; LYMPHOCYTES ABSOLUTE 1.23 10/3/uL (0.67-4.30); MANUAL DIFF NO %; MEAN CORPUSCULAR HEMOGLOB 27.3 pg (26.0-34.0); MEAN CORPUSCULAR VOLUME 85.2 fL (80-100); MONOCYTES ABSOLUTE 0.91 10/3/uL (0.21-1.20); NEUTROPHILS 78.2 %; PLATELET COUNT 335 10/3/uL (150-400); RBC DISTRIBUTION WIDTH 18.1 % (12.0-16.0); RED CELL COUNT 2.97 10/6/uL (4.7-6.1); WHITE BLOOD CELLS 10.1 10/3/uL (4.5-10.5)
[2016-06-17 05:11] LABS: BUN (BLOOD UREA NITROGEN) 6 MG/DL (6-23); CHLORIDE, SERUM 102 MMOL/L (96-112); CO2 (CARBON DIOXIDE) 27 MMOL/L (24-34); CREATININE 0.43 MG/DL (0.70-1.30); GFR AFRICAN AMERICAN 131 ML/MIN (>=60); GFR NON AFRICAN AMERICAN 113 ML/MIN (>=60); GLUCOSE, SERUM 111 MG/DL (60-99); SODIUM, SERUM 139 MMOL/L (135-148)
[2016-06-17 05:15] LABS: POTASSIUM, SERUM 2.8 MMOL/L (3.5-5.3)
[2016-06-18 05:07] LABS: BASOPHILS 0.4 %; BASOPHILS ABSOLUTE 0.03 10/3/uL (0.0-0.16); EOSINOPHILS 0.8 %; EOSINOPHILS ABSOLUTE 0.06 10/3/uL (0.0-0.53); HEMATOCRIT 25.6 % (40.0-51.0); HEMOGLOBIN 8.2 g/dL (13.6-17.8); IMMATURE GRANULOCYTES 0.4 %; IMMATURE GRANULOCYTES ABSOLUTE 0.03 10/3/uL (0.0-0.11); LYMPHOCYTES 16.6 %; LYMPHOCYTES ABSOLUTE 1.24 10/3/uL (0.67-4.30); MEAN CORPUSCULAR HEMOGLOB 27.3 pg (26.0-34.0); MEAN CORPUSCULAR VOLUME 85.3 fL (80-100); MEAN PLATELET VOLUME 8.9 fL (9.2-13.0); MONOCYTES 10.3 %; MONOCYTES ABSOLUTE 0.77 10/3/uL (0.21-1.20); NEUTROPHILS 71.5 %; NEUTROPHILS ABSOLUTE 5.36 10/3/uL (2.02-8.40); PLATELET COUNT 370 10/3/uL (150-400); WHITE BLOOD CELLS 7.5 10/3/uL (4.5-10.5)
[2016-06-18 05:08] LABS: MANUAL DIFF NO %
[2016-06-18 05:28] LABS: BUN (BLOOD UREA NITROGEN) 5 MG/DL (6-23); CALCIUM, SERUM 7.8 MG/DL (8.5-10.4); CHLORIDE, SERUM 103 MMOL/L (96-112); CO2 (CARBON DIOXIDE) 29 MMOL/L (24-34); CREATININE 0.41 MG/DL (0.70-1.30); GFR AFRICAN AMERICAN 133 ML/MIN (>=60); GFR NON AFRICAN AMERICAN 115 ML/MIN (>=60); GLUCOSE, SERUM 104 MG/DL (60-99); PHOSPHORUS, SERUM 2.5 MG/DL (2.5-4.5); POTASSIUM, SERUM 3.2 MMOL/L (3.5-5.3); SODIUM, SERUM 141 MMOL/L (135-148)
[2016-06-19 04:36] LABS: BASOPHILS 0.4 %; BASOPHILS ABSOLUTE 0.03 10/3/uL (0.0-0.16); EOSINOPHILS 1.6 %; EOSINOPHILS ABSOLUTE 0.11 10/3/uL (0.0-0.53); HEMATOCRIT 26.1 % (40.0-51.0); HEMOGLOBIN 8.2 g/dL (13.6-17.8); IMMATURE GRANULOCYTES 0.3 %; IMMATURE GRANULOCYTES ABSOLUTE 0.02 10/3/uL (0.0-0.11); LYMPHOCYTES 21.3 %; LYMPHOCYTES ABSOLUTE 1.46 10/3/uL (0.67-4.30); MEAN CORPUS HGB CONC 31.4 g/dL (32.0-36.0); MEAN CORPUSCULAR HEMOGLOB 26.7 pg (26.0-34.0); MEAN PLATELET VOLUME 9.3 fL (9.2-13.0); MONOCYTES 12.4 %; MONOCYTES ABSOLUTE 0.85 10/3/uL (0.21-1.20); PLATELET COUNT 393 10/3/uL (150-400); RBC DISTRIBUTION WIDTH 17.9 % (12.0-16.0); RED CELL COUNT 3.07 10/6/uL (4.7-6.1); WHITE BLOOD CELLS 6.9 10/3/uL (4.5-10.5)
[2016-06-19 04:43] LABS: MANUAL DIFF NO %
[2016-06-19 04:46] LABS: BUN (BLOOD UREA NITROGEN) 6 MG/DL (6-23); CALCIUM, SERUM 7.8 MG/DL (8.5-10.4); CHLORIDE, SERUM 98 MMOL/L (96-112); CREATININE 0.46 MG/DL (0.70-1.30); GFR AFRICAN AMERICAN 127 ML/MIN (>=60); GFR NON AFRICAN AMERICAN 110 ML/MIN (>=60); GLUCOSE, SERUM 112 MG/DL (60-99); POTASSIUM, SERUM 3.3 MMOL/L (3.5-5.3); SODIUM, SERUM 140 MMOL/L (135-148)
[2016-06-19 04:47] LABS: CO2 (CARBON DIOXIDE) 34 MMOL/L (24-34)
[2016-06-19 05:18] LABS: PROCALCITONIN 0.22 ng/mL (<0.5)
[2016-09-21] MEDS ORDERED: CORDARONE PO (15:37)
[2016-09-21] MEDS ORDERED: LOP50 PO (15:39)
== END 2016-06-19 15:44 | disposition left against medical advice (07) | DRG 3 ==
LOC: CCU 10:56 → IMCU 05-29 17:50 → MIC 06-04 18:30
PROVIDERS: Hospitalist; Internal Medicine; Internal Medicine Critical Care Medicine; Internal Medicine Gastroenterology; Internal Medicine Pulmonary Disease; Nurse Practitioner Family; Otolaryngology
DX: C32.1 Malignant neoplasm of supraglottis (principal); R65.21 Severe sepsis with septic shock; E43 Unspecified severe protein-calorie malnutrition; A41.9 Sepsis, unspecified organism; G93.40 Encephalopathy, unspecified; J95.821 Acute postprocedural respiratory failure; R04.2 Hemoptysis; K56.7 Ileus, unspecified; D62 Acute posthemorrhagic anemia; J98.11 Atelectasis; I97.89 Other postprocedural complications and disorders of the circulatory system, not elsewhere classified; I48.91 Unspecified atrial fibrillation; I16.0 Hypertensive urgency; I73.9 Peripheral vascular disease, unspecified; I10 Essential (primary) hypertension; Z86.73 Personal history of transient ischemic attack (TIA), and cerebral infarction without residual deficits; Z88.2 Allergy status to sulfonamides; Z88.1 Allergy status to other antibiotic agents; Z98.890 Other specified postprocedural states; Z88.5 Allergy status to narcotic agent; Z91.040 Latex allergy status; Z87.891 Personal history of nicotine dependence; Z79.82 Long term (current) use of aspirin; Z79.899 Other long term (current) drug therapy; Z79.02 Long term (current) use of antithrombotics/antiplatelets; Z68.22 Body mass index [BMI] 22.0-22.9, adult; Z95.820 Peripheral vascular angioplasty status with implants and grafts
CPT/HCPCS: 31646; 31720; 36415; 36569; 36600; 49440; 49465; 71010; 74000; 74150; 74177; 80048; 80053; 80069; 80202; 81001; 82040; 82140; 82272; 82330; 82550; 82553; 82803; 82805; 82947; 82962; 83605; 83735; 83880; 84100; 84132; 84134; 84145; 84295; 84484; 85014; 85018; 85025; 85576; 85610; 85730; 86850; 86900; 86901; 86920; 87040; 87070; 87075; 87077; 87150; 87186; 87205; 87641; 88305; 88309; 88331; 88332; 88341; 88342; 93005; 94002; 94003; 94640; 94770; 97110-GO; 97110-GP; 97162-GP; 97164-GP; 97166-GO; 97167-GO; 97530-GP; 97535-GO; A9270-GY; C1751; C1769; C9113; G8978-CM-GP; G8979-CL-GP; G8987-CL-GO; G8987-CN-GO; G8988-CK-GO; G8988-CL-GO; J0282; J0690; J0692; J0744; J1160; J1170; J1630; J1940; J2185; J2250; J2370; J2405; J3010; J3370; P9016; Q9967